=== PATIENT | male | born 1955 | race Caucasian/White ===

== ENCOUNTER 2018-10-17 06:49 | Day surgery (SDC) | payer MEDICARE, OTHER, SELFPAY ==
[2018-09-22 09:27] VITALS: BMI 45.4
--- NOTE | 2018-10-16 | COLBX_PTH ---
PATIENT: JAMAAL ALANIZ LOC: [facility] U#:[id number] AGE/SX: 63/M ROOM: RE10/17/[address]: Dr. Alfa Lau MD : [id number] BED: DIS: 10/17/2018 SPEC #: [id number] RECD: 10/17/18 09:37 STATUS: WAYNE AGUILA #: [id number] CURLY: 10/16/18 00:[address]: Alfa Lau DEPT: SURGICAL PATHOLOGY RECD BY: Amador Peters ENTERED: 10/17/18 09:37 SP TYPE: COLON BX OTHR DR: Dr. Brian Díaz MD Tissues: Sigmoid colon biopsy Procedures: Surgery Specimen Level IV HEADER OPERATION: Colonoscopy (MAC) PRE-OP DIAGNOSIS: History of polyps TISSUE SUBMITTED: Biopsy of sigmoid colon polyp MICROSCOPIC DIAGNOSIS Sigmoid colon polyp, biopsy: Diminutive hyperplastic polyp, chronically inflamed. CE:jennifer 10/20/18 MICROSCOPIC DESCRIPTION Slides are reviewed. GROSS DESCRIPTION Received in fixative is one container labeled with the patient's name and designated biopsy of sigmoid colon polyp. The specimen consists of one irregular fragment of light stahl soft tissue that measures 0.5 x 0.2 x 0.1 cm. The specimen is totally submitted in one cassette. / SJ:rg 10/17/18 TC:3 CPT: 07663
[2018-10-17] VITALS (7 sets, daily range): BP systolic 110–124; BP diastolic 63–93; PULSE 59–66; RESP 16–18; TEMP 36.2–37.3; O2SAT 95–98; BMI 46.2
[2018-10-17 07:40] LABS: Bedside Glucose 152 mg/dL (70-110)
--- NOTE | 2018-10-17 08:36 | PCM.HP.BLA ---
Problem List (1) Personal history of colonic polyps Status: Acute History and Physical Date of Admission: 10/17/18 Intake Vital Signs 09/22/18 Height 5 ft 9 in 09/22/18 Weight: 308 lb 09/22/18 Body Mass Index (BMI) 45.4 09/22/18 Blood Pressure 131/81 H 09/22/18 Respiratory Rate 18 Intake Visit Reasons: Colonoscopy Consult Civil Defense Director Required: No Is patient in pain?: No Allergies No Known Allergies Allergy (Unverified 09/22/18 09:28) Medications aspirin 81 mg tablet,delayed release 81 mg PO DAILY 09/22/18 [History Confirmed 09/22/18] atorvastatin 20 mg tablet 20 mg PO DAILY 09/22/18 [History Confirmed 09/22/18] hydrochlorothiazide 25 mg tablet 25 mg PO DAILY 09/22/18 [History Confirmed 09/22/18] insulin NPH human semi-synthetic 100 unit/mL subcutaneous suspension unit SC 09/22/18 [History Confirmed 09/22/18] lisinopril 20 mg tablet 20 mg PO DAILY 09/22/18 [History Confirmed 09/22/18] metformin 1,000 mg tablet 1,000 mg PO BID 09/22/18 [History Confirmed 09/22/18] metoprolol succinate ER 100 mg tablet,extended release 24 hr 100 mg PO BID 09/22/18 [History Confirmed 09/22/18] PFS Medical History Diabetes (Acute) High cholesterol (Acute) HTN (hypertension) (Chronic) Surgical History H/O heart artery stent (Acute) S/P appendectomy (Acute) S/P arthroscopic knee surgery (Acute) Status post replacement of right shoulder joint (Acute) Social History Smoking Status: Former smoker alcohol intake: never HPI HPI HPI: JAMAAL ALANIZ, is a 63 M who presents to the office today for HPI HPI HPI: JAMAAL ALANIZ, is a 63 M who presents to the office today for colonoscopy consult. Patient reports his last colonoscopy was 5 years ago and he was recommended to have a repeat colonoscopy in 5 years due to polyps removed. Patient reports that he has intermittent diarrhea and this is been going on for years. He says that he will go a few days then he will have a few days of diarrhea and then go back to normal for a few days. He does not report any blood in his stool or abdominal pain. He does not have any family history of colon cancer. He does have significant shortness of breath and he says he cannot climb a flight of stairs. He says he quit smoking in 2013 the same year he had a heart attack and heart stents. ROS General General: Yes weight change; no fatigue Endo Endocrine: Yes diabetes mellitus Musc Musculoskeletal: Yes back problems and arthritis Cardio Cardiovascular: Yes heart disease, high blood pressure, heart attack and heart stent (2013); no murmur, pacemaker, atrial fibrillation, palpitations, shortness of breat with exertion or chest pain Psych Psychiatric: No depression or anxiety Resp Respiratory: Yes shortness of breath, No sleep apnea, No cough, No COPD, No asthma, No emphysema, No wheezing Gastro Gastrointestinal: No abdominal pain, No nausea or vomiting, Yes diarrhea, No constipation, No blood in stool, No acid reflux, Yes hemorrhoids, No ulcers, No gallbladder problem, No black,tarry stools Hamzah Hematologic: Yes blood thinners Exam Const General: cooperative Orientation: alert, oriented x3 Resp Effort & Inspection: audible wheezes, labored Cardio Rate: regular rate Rhythm: regular rhythm Heart Sounds: no murmurs GI Inspection: non-distended Palpation: soft, nontender Assessment & Plan Problems 1. Personal history of colonic polyps Z86.010 2. Shortness of breath R06.02 Plan The patient is due for colonoscopy due to personal history of polyps. I explained endoscopy in detail to the patient. I explained the risks including but not limited to stroke or heart attack with anesthesia, perforation of the GI tract, bleeding, infection. I explained that any of these could necessitate further emergency surgery. The patient understands and all questions were answered sufficiently. The patient wishes to proceed with procedure. The patient is also very short of breath in the office and says he is not able to climb a flight of stairs. He reports that he quit smoking in 2013 but smoked for 50 years. I will refer him to pulmonology as he may need optimization and he may have COPD. Alfa Lau MD Pager: [facility] [address] [place] [address], [address] [place] [address] Office: I have re-examined the patient. There are no clinical changes since date of exam Alfa Lau MD Pager: [facility] [address] [place] [address], [address] [place] [address] Office:
--- NOTE | 2018-10-17 09:16 | OP.ENDO_ITS ---
10/17/2018 Brian Díaz Re : Colonoscopy procedure for Alfonzo Díaz This procedure was performed on Wednesday, October 17, 2018. My impressions and recommendations are as follows: Impressions : - One small polyp in the sigmoid colon, removed with a cold biopsy forceps. Resected and retrieved. - The entire examined colon is normal on direct and retroflexion views. Recommendations : - Discharge patient to home. - Resume previous diet. - Continue present medications. - Await pathology results. - Repeat colonoscopy date to be determined after pending pathology results are reviewed for surveillance based on pathology results. My findings are described in the full procedure note, which is enclosed. If I can be of further assistance, please feel free to contact me at Doctor phone number(s): , Work: . Sincerely, Alfa Lau MD 10/17/2018 9:15:41 AM This report has been signed electronically.
== END 2018-10-17 09:57 | disposition home or self-care (01) ==
LOC: EN 06:53 → AC 06:55
PROVIDERS: Family Provider Family Medicine; PCP Family Medicine; Referring Provider Family Medicine; Visit Provider Surgery
PROC: 0DJD8ZZ Inspection of Lower Intestinal Tract, Via Natural or Artificial Opening Endoscopic (ICD-10-PCS; CPT 45378; principal; 2018-10-17 08:25)
DX: Z12.11 Encounter for screening for malignant neoplasm of colon (principal); K63.5 Polyp of colon; E11.9 Type 2 diabetes mellitus without complications; I10 Essential (primary) hypertension; E78.00 Pure hypercholesterolemia, unspecified; Z79.82 Long term (current) use of aspirin; Z79.4 Long term (current) use of insulin; Z79.899 Other long term (current) drug therapy; I25.2 Old myocardial infarction; Z86.010 Personal history of colon polyps; Z87.891 Personal history of nicotine dependence; Z95.5 Presence of coronary angioplasty implant and graft
CPT/HCPCS: 45380; 82962; 88305; J7120

== ENCOUNTER → 2019-01-05 10:35 | Outpatient (CLI) | payer MEDICARE, SELFPAY ==
[2018-12-09 08:49] VITALS: BMI 45.7
[2019-01-05 11:10] VITALS: PULSE 62; PULSE 70; PULSE 77; PULSE 89; PULSE 91; PULSE 92; PULSE 93; O2SAT 93; O2SAT 95; O2SAT 96
--- NOTE | 2019-01-05 13:35 | PCM.PSN.6M ---
PSN 6 Minute Walk Test - 6 Minute Walk Test 6 Minute Walk Test: 6 Minute Walk Test PSN:6-Minute Walk Test Start: 01/05/19 11:10 Freq: Status: Active Protocol: [id number] Document 01/05/19 11:10 JOSEDANI (Rec: 01/05/19 11:12 MIESHA [id number]) 6 Minute Walk Test Date Performed 01/05/19 Time Performed 11:00 Height 5 ft 8 in Weight: 136.985 kg Weight in Pounds 302.[address]: Ulisses Díaz Assistive device used: None Pre-test Oxygen Delivery Method Room Air Pulse Ox (%) 96 Pulse Rate (60-100 beats/min) 62 Dyspnea Jaqueline Scale (0-10) 0 Exertion Jaqueline Scale (6-20) 6 1st minute Oxygen Delivery Method Room Air Pulse Ox (%) 95 Pulse Rate (60-100 beats/min) 77 2nd minute Oxygen Delivery Method Room Air Pulse Ox (%) 93 Pulse Rate (60-100 beats/min) 89 3rd minute Oxygen Delivery Method Room Air Pulse Ox (%) 93 Pulse Rate (60-100 beats/min) 91 4th minute Oxygen Delivery Method Room Air Pulse Ox (%) 93 Pulse Rate (60-100 beats/min) 92 5th minute Oxygen Delivery Method Room Air Pulse Ox (%) 93 Pulse Rate (60-100 beats/min) 93 6th minute Oxygen Delivery Method Room Air Pulse Ox (%) 93 Pulse Rate (60-100 beats/min) 93 Dyspnea Jaqueline Scale (0-10) 2 Exertion Jaqueline Scale (6-20) 13 Post-test Oxygen Delivery Method Room Air Pulse Ox (%) 96 Pulse Rate (60-100 beats/min) 70 Full Laps Walked 16 Partial Lap, Number of Tiles Walked 10 Total Distance Walked (ft) 954 - Interpretation Interpretation: The patient was able to ambulate 954 feet over the course of 6 minutes on room air with no assistive devices or breaks. The patient did experience significant desaturation from a baseline of 96% to as low as 93% and some reflexive tachycardia and 93 bpm. These findings are consistent with deconditioning. - Recommendations Recommendations: No supplemental oxygen is indicated at this time.
== END ==
PROVIDERS: Family Provider Family Medicine; PCP Family Medicine; Referring Provider Internal Medicine Critical Care Medicine; Visit Provider Internal Medicine Critical Care Medicine
DX: R06.02 Shortness of breath (principal)
CPT/HCPCS: 94618

== ENCOUNTER → 2019-01-08 08:37 | Outpatient (CLI) | payer MEDICARE, SELFPAY ==
[2018-12-09 08:49] VITALS: BMI 45.7
--- NOTE | 2019-01-08 14:55 | PFTCOMP_ITS ---
COMPLETE PULMONARY FUNCTION TEST INTERPRETATION Brief HPI: Patient is a 63 year old male, currently under the care of Dr. Díaz, who presents to [facility] for complete pulmonary function tests secondary to diagnosis of dyspnea. Respiratory therapist reports good effort and reproducible results. Interpretation: Forced expiration spirometry shows a moderately severe large airways obstructive ventilatory defect with an FEV1 of 50% predicted. There is a significant bronchodilator response in FEV1 by strict ATS criteria. Spirograms are of good quality and plateau slowly, indicating slowly emptying areas of the lungs. The respiratory flow volume loop shows decreased expiratory flow rates at all lung volumes consistent with airway obstruction. Lung volumes by body plethysmography show an elevated total lung capacity at 9.19 L, 150% predicted. FRC and RV are elevated out of proportion. Lung volume measurements are consistent with hyperinflation and air-trapping. Diffusion capacity by carbon monoxide is decreased at 58% predicted. The airway resistance is elevated. No previous pulmonary function tests were available for review. Impression: Partially reversible moderately severe large airways obstructive ventilatory defect with a symmetric reduction diffusing capacity, resulting in air trapping with hyperinflation, in a pattern consistent with COPD/asthma overlap syndrome
== END ==
PROVIDERS: Family Provider Family Medicine; PCP Family Medicine; Referring Provider Internal Medicine Critical Care Medicine; Visit Provider Internal Medicine Critical Care Medicine
DX: R06.02 Shortness of breath (principal)
CPT/HCPCS: 94060; 94726; 94729

== ENCOUNTER → 2021-03-17 18:29 | Outpatient (CLI) | payer MEDICARE, OTHER, SELFPAY ==
--- NOTE | 2021-03-17 18:40 | CT_ITS ---
STUDY: LOW DOSE CT LUNG CANCER SCREENING REASON FOR EXAM: Male, 65 years old. NICOTINE DEPENDENCE ex smoker x 8 years. smoked for 45 2ppd. copd and htn RADIATION DOSAGE (If Supplied By Facility): CTDIvol = ( 4.02 ) mGy, DLP = ( 129.89 ) mGycm TECHNIQUE: No contrast was administered. Low dose technique was utilized (average mAS-38 and kVp 120). 1.25 mm axial source images with a slice interval of 1.25-mm were reconstructed in lung windows. 2.5 mm axial source images with a slice interval of 2.5-mm were reconstructed in lung windows. 5.0 mm axial source images with a slice interval of 5.0-mm were reconstructed in soft tissue windows. Nodule measured using lung windows on PACS and/or independent workstation with automated measurement of minimum and maximum diameter. Nodule measurement reported as average diameter rounded to the nearest whole number. Growth is defined as an increase ins size of greater than 1.5 mm. COMPARISON: None. Findings: There are no high-risk focal findings. There are scattered granulomata all measuring less than 5 mm, low risk. Central airways are patent. Pleural surfaces are intact. Coronary arteries are severely diseased. Cardiac chambers are normal in size and shape. Osseous structures are intact with right shoulder replacement. CT/Low Dose CT Lung Screening IMPRESSION: 1. Lung RADS category 2. 2. Benign granulomata. 3. Severe coronary artery disease. IMPORTANT NOTES FOR USE: ACR Lung-RADS Version 1.1 Assessment Categories Release Date: 2018 Category: Coded 0-4 bases on nodule(s) with highest degree of suspicion. Negative screen is defined as categories 1 and 2; a positive screen is defined as categories 3 and 4. Category 3 and 4A nodules that are unchanged on interval CT should be coded as category 2, and individuals returned to screening in 12 months. Category 4X: Category 3 or 4 nodules with additional imaging findings that increase the suspicion of lung cancer, such as spiculation, GGN that doubles in size in 1 year, enlarged lymph notes, etc. Category Modifiers: S (significant finding unrelated to lung cancer) Electronically Signed: Betzaida Gomez MD at 19:42 EDT Tel , Service support ,
== END ==
PROVIDERS: PCP Family Medicine; Visit Provider Nurse Practitioner Acute Care
DX: Z87.891 Personal history of nicotine dependence (principal)
CPT/HCPCS: 71271

== ENCOUNTER 2023-05-13 09:52 | Outpatient (RCR) | payer MEDICARE, SELFPAY | END 2023-05-16 23:59 | LOC: NS 09:52 | PROVIDERS: PCP Family Medicine; Referring Provider Orthopaedic Surgery; Visit Provider Orthopaedic Surgery | DX: Z71.3 Dietary counseling and surveillance (principal); E11.9 Type 2 diabetes mellitus without complications; E66.9 Obesity, unspecified; Z68.42 Body mass index [BMI] 45.0-49.9, adult | CPT/HCPCS: 97802 ==

== ENCOUNTER 2023-06-05 10:30 | Outpatient (RCR) | payer MEDICARE, SELFPAY | END 2023-06-16 23:59 | LOC: NS 10:30 | PROVIDERS: PCP Family Medicine; Referring Provider Orthopaedic Surgery; Visit Provider Orthopaedic Surgery | DX: Z71.3 Dietary counseling and surveillance (principal); E11.9 Type 2 diabetes mellitus without complications; E66.9 Obesity, unspecified; Z68.42 Body mass index [BMI] 45.0-49.9, adult | CPT/HCPCS: 97803 ==

== ENCOUNTER 2023-07-09 10:54 | Outpatient (RCR) | payer MEDICARE, SELFPAY | END 2023-07-17 23:59 | LOC: NS 10:54 | PROVIDERS: PCP Family Medicine; Referring Provider Orthopaedic Surgery; Visit Provider Orthopaedic Surgery | DX: Z71.3 Dietary counseling and surveillance (principal); E11.9 Type 2 diabetes mellitus without complications; E66.9 Obesity, unspecified; Z68.42 Body mass index [BMI] 45.0-49.9, adult | CPT/HCPCS: 97803 ==

== ENCOUNTER → 2023-08-09 | Outpatient (CLI) | payer MEDICARE, SELFPAY ==
--- NOTE | 2023-08-09 07:53 | CT_ITS ---
STUDY: LOW DOSE CT LUNG CANCER SCREENING REASON FOR EXAM: Male, 68 years old. Quit smoking 2009. The patient smoked 1-3 packs per day for 50 years. RADIATION DOSAGE (If Supplied By Facility): CTDIvol = ( 4.02 ) mGy, DLP = ( 138.43 ) mGycm TECHNIQUE: No contrast was administered. Low dose technique was utilized (average mAS-38 and kVp 120). 1.25 mm axial source images with a slice interval of 1.25-mm were reconstructed in lung windows. 2.5 mm axial source images with a slice interval of 2.5-mm were reconstructed in lung windows. 5.0 mm axial source images with a slice interval of 5.0-mm were reconstructed in soft tissue windows. COMPARISON: Comparison is made with prior examination of March 17, 2021. NODULES: Stable scattered bilateral ossified granulomas. Endobronchial lesion: None Aorta: Mild atherosclerotic plaque formation of the aortic arch. CORONARY ARTERIES: Coronary artery calcification is seen. Heart: Unremarkable Pulmonary artery: Unremarkable Mediastinal nodes: Unremarkable Other chest and abdominal findings: Patient is status post right shoulder replacement. CT/Low Dose CT Lung Screening IMPRESSION: Lung-RADS category 2 - Continue annual screening with LDCT in 12 months. IMPORTANT NOTES FOR USE: ACR Lung-RADS Version 1.1 Assessment Categories Release Date: 2018 Category: Coded 0-4 bases on nodule(s) with highest degree of suspicion. Negative screen is defined as categories 1 and 2; a positive screen is defined as categories 3 and 4. Category 3 and 4A nodules that are unchanged on interval CT should be coded as category 2, and individuals returned to screening in 12 months. Category 4X: Category 3 or 4 nodules with additional imaging findings that increase the suspicion of lung cancer, such as spiculation, GGN that doubles in size in 1 year, enlarged lymph notes, etc. Category Modifiers: S (significant finding unrelated to lung cancer) Electronically Signed: Suhas Puente MD at 12:37 EST ,
--- OUTSIDE RECORDS SUMMARY | 2023-08-09 08:09 | XMS RPT_ITS | CCD ---
Author Name Unknown Address [address] [place] [address] Organization [facility] Care Team Providers Care Emt B Name Role Phone Arjun GUDINO, Janelle Cadena Unavailable Arjun GUDINO, Janelle Cadena Unavailable [facility] [place] Unavailable [facility] Unavailable [phone] Rangel GUDINO, Dr. Pozo Unavailable Nick GUDINO, Dr. William Emerson Unavailable Judi GUDINO, Dr. Grimm Unavailable Niels MICHAEL, Akanksha Unavailable Dr. Ulisses Díaz DO Unavailable [facility] Unavailable Sekou GUDINO, Dr. Cohn ([place] [facility]) A Unavail able [facility] DudleyClaudia Dyer Unavaila ble Julio PAYNE, Dr. Koch Unavailable Orthopedic Provider Unavailable Unavailable [facility], . [facility] Unavailable Abraham GUDINO, George Bynum Unavailable Nancie GUDINO, Dr. Luther Unavailable [phone] Mary Alice GUDINO, Teresita Ramírez Unavailable Jossy FULTON, Aixa Unavailable Roland FULTON, Carlita Ramírez Unavailable Unavailable Felicitas Saenz PA-C Unavailable [phone] Vick HAY, Luke E Unavailable Vick, Tiffanie C Unavailable Unavailable Terrance DECK CADET, Magdalena Unavailable Unavailable King CHETNA-C, Giovanni Stone Unavailable [phone] Claribel RN, Felicitas Liu Unavailable Unavaila nikos Sapp RN, Abena Unavailable Pteers DECK CADET, Hortencia Unavailable Unavailable Darius PA-C, Berna J Unavailable [phone] Richert DECK CADET, Michelle L Unavailable Unavailab le Madhav DECK CADET, Teresita M Unavailable Unavailab le Yesica DECK CADET, Shannon Salvador Unavailable Unavailab le Zachary MA, Magdalena Unavailable Unavailable Vikas GUDINO, Devante Liu Unavailable [phone] Vess DECK CADET, Neenoche L Unavailable Unavailable Wenickieraixa DECK CADET, Marsha Unavailable Unavailabl e Sabino DECK CADET, Blanka N Unavailable Unavaila ble Zaugg DECK CADET, Hollie Unavailable Unavailable Unavailable Unavailable CURRAN, ZAFAR CORPORATE SECRETARY Admitting Unavailable CURRAN, ZAFAR CORPORATE SECRETARY Primary Care Unavailable BROWN, JANELLE Consulting Unavailable CURRAN, ZAFAR CORPORATE SECRETARY Attending Unavailable PROVIDER, UNKNOWN Consulting Unavailable PROVIDER, UNKNOWN Consulting Unavailable PROVIDER, UNKNOWN Consulting Unavailable CURRAN, ZAFAR CORPORATE SECRETARY Attending Unavailable CURRAN, ZAFAR CORPORATE SECRETARY Admitting Unavailable CURRAN, ZAFAR CORPORATE SECRETARY Primary Care Unavailable BROWN, JANELLE Consulting Unavailable PROVIDER, UNKNOWN Consulting Unavailable PROVIDER, UNKNOWN Consulting Unavailable PROVIDER, UNKNOWN Consulting Unavailable CURRAN, ZAFAR CORPORATE SECRETARY Admitting Unavailable CURRAN, ZAFAR CORPORATE SECRETARY Primary Care Unavailable CURRAN, ZAFAR CORPORATE SECRETARY Attending Unavailable BROWN, JANELLE Consulting Unavailable PROVIDER, UNKNOWN Consulting Unavailable PROVIDER, UNKNOWN Consulting Unavailable PROVIDER, UNKNOWN Consulting Unavailable CURRAN, ZAFAR CORPORATE SECRETARY Primary Care Unavailable CURRAN, ZAFAR CORPORATE SECRETARY Attending Unavailable CURRAN, ZAFAR CORPORATE SECRETARY Admitting Unavailable BROWN, JANELLE Consulting Unavailable PROVIDER, UNKNOWN Consulting Unavailable PROVIDER, UNKNOWN Consulting Unavailable PROVIDER, UNKNOWN Consulting Unavailable KHANH GHOSH DO Attending Unavailable KHANH GHOSH DO Admitting Unavailable JANELLE DÍAZ Referring Unavailable BROWN, JANELLE Consulting Unavailable KHANH GHOSH DO Primary Care Unavailable PROVIDER, UNKNOWN Consulting Unavailable PROVIDER, UNKNOWN Consulting Unavailable PROVIDER, UNKNOWN Consulting Unavailable ARJUN, JANELLE Referring Unavailable BROWN, JANELLE Consulting Unavailable MILADY, ROSANNA E Primary Care Unavailable MILADY ROSANNA E Admitting Unavailable MILADYROSANNA E Attending Unavailable PROVIDER, UNKNOWN Consulting Unavailable PROVIDER, UNKNOWN Consulting Unavailable PROVIDER, UNKNOWN Consulting Unavailable FAUSTINO CHARLES Primary Care Unavailable JANELLE DÍAZ Referring Unavailable FAUSTINO CHARLES Attending Unavailable FAUSTINO CHARLES Admitting Unavailable JANELLE DÍAZ Consulting Unavailable PROVIDER, UNKNOWN Consulting Unavailable PROVIDER, UNKNOWN Consulting Unavailable PROVIDER, UNKNOWN Consulting Unavailable FAUSTINO CHARLES Primary Care Unavailable FAUSTINO CHARLES Admitting Unavailable FAUSTINO CHARLES Attending Unavailable JANELLE DÍAZ Referring Unavailable ARJUN, JANELLE Consulting Unavailable PROVIDER, UNKNOWN Consulting Unavailable PROVIDER, UNKNOWN Consulting Unavailable PROVIDER, UNKNOWN Consulting Unavailable GUERDA FONTENOT MD Attending UnavailGUERDA Oliveira MD Admitting UnavailJANELLE Christopher Consulting Unavailable GUERDA FONTENOT MD Primary Care Unavailabl e PROVIDER, UNKNOWN Consulting Unavailable PROVIDER, UNKNOWN Consulting Unavailable PROVIDER, UNKNOWN Consulting Unavailable Allergies Allergy Classification Reported Allergen(s) Allergy Type Date of Onset Reaction(s) Facility (1 source) Penicillin Drug Allergy [facility] Repository Medications Current Medications Medication Drug Class(es) Dates Sig (Normalized) Sig (Original) Advocate Syringes (7 sources) Start: 09-13-2021 atorvastatin 20 mg oral tablet (7 sources) HMG-CoA Reductase Inhibitor Start: 06-11-2023 empagliflozin 10 mg oral tablet (7 sources) Sodium-Glucose Cotransporter 2 Inhibitor hydroCHLOROthiazide 25 mg oral tablet (7 sources) Thiazide Diuretic Start: 06-11-2023 insulin isophane, human 100 unt/ml injectable suspension (14 sources) Start: 09-13-2021 insulin, regular, human 100 unt/ml injectable solution (7 sources) Insulin 24 hr isosorbide mononitrate 30 mg extended release oral tablet (7 sources) Nitrate Vasodilator lisinopril 40 mg oral tablet (7 sources) Angiotensin Converting Enzyme Inhibitor Start: 06-11-2023 metFORMIN hydrochloride 1000 mg oral tablet (7 sources) Biguanide Start: 06-11-2023 ondansetron 4 mg oral tablet (14 sources) Serotonin-3 Receptor Antagonist Start: 05-20-2023 Completed/Discontinued Medications Medication Drug Class(es) Dates Sig (Normalized) Sig (Original) acetaminophen 325 mg / HYDROcodone bitartrate 5 mg oral tablet (14 sources) Opioid Agonist Start: 11-25-2013 End: 08-30-2014 albuterol 0.83 mg/ml inhalation solution (14 sources) beta2-Adrenergic Agonist Start: 07-05-2016 End: 10-05-2016 Problems Problem Classification Problem Date Documented Da te Episodic/Chronic Abdominal pain (14 sources) Epigastric pain; Translations: [Epigastric pain] 08-30-2014 Episodic Acute bronchitis (20 sources) Acute bronchitis; Translations: [Acute bronchitis, unspecified] 04-02-2017 Episodic Adjustment disorders (20 sources) Grief finding; Translations: [Adjustment disorder with depressed mood] 03-01-2021 Chronic Allergic reactions (14 sources) Eczema; Translations: [Dermatitis, unspecified] 03-01-2021 Episodic Asthma (20 sources) Asthma-chronic obstructive pulmonary disease overlap syndrome; Translations: [Chronic obstructive asthma, unspecified] 05-20-2023 Chronic Calculus of urinary tract (14 sources) Renal colic; Translations: [Unspecified renal colic] 05-20-2023 Episodic Chronic obstructive pulmonary disease and bronchiectasis (20 sources) Bronchitis; Translations: [Bronchitis, not specified as acute or chronic] 04-29-2023 Episodic Coronary atherosclerosis and other heart disease (20 sources) Coronary arteriosclerosis; Translations: [Atherosclerotic heart disease of [place] coronary artery without angina pectoris] 05-20-2023 Chronic Diabetes mellitus with complications (20 sources) Hyperglycemia due to type 2 diabetes mellitus; Translations: [Type 2 diabetes mellitus with hyperglycemia] 05-20-2023 Chronic Diabetes mellitus without complication (20 sources) Diabetes mellitus without mention of complication, type II or unspecified type, not stated as uncontrolled; Translations: [Diabetes mellitus] 08-30-2014 Chronic Diabetes mellitus without complication (14 sources) Glycosuria; Translations: [Glycosuria] 05-20-2023 Episodic Disorders of lipid metabolism (20 sources) Hyperlipidemia; Translations: [Hyperlipidemia, unspecified] 05-20-2023 Chronic Essential hypertension (20 sources) Benign essential hypertension; Translations: [Essential (primary) hypertension] 05-20-2023 Chronic Fluid and electrolyte disorders (14 sources) Hypokalemia; Translations: [Hypokalemia] 05-20-2023 Episodic Gastritis and duodenitis (7 sources) Gastritis; Translations: [Gastritis, unspecified, without bleeding] 12-09-2019 Episodic Gastrointestinal hemorrhage (14 sources) Gastrointestinal hemorrhage; Translations: [Hemorrhage of anus and rectum] 10-29-2018 Episodic Genitourinary symptoms and ill-defined conditions (20 sources) Dysuria; Translations: [Dysuria] 05-16-2023 Episodic Immunizations and screening for infectious disease (20 sources) Needs influenza immunization; Translations: [Encounter for immunization] 04-29-2019 Episodic Mycoses (7 sources) Candidiasis of skin; Translations: [Candidiasis of skin and nail] 07-13-2014 Episodic Nausea and vomiting (20 sources) Nausea; Translations: [Nausea] 05-20-2023 Episodic Noninfectious gastroenteritis (20 sources) Gastroenteritis; Translations: [Noninfective gastroenteritis and colitis, unspecified] 08-30-2014 Episodic Osteoarthritis (20 sources) Osteoarthritis of knee; Translations: [Osteoarthritis of knee, unspecified] 05-20-2023 Chronic Other aftercare (20 sources) Long-term (current) use of other medications 08-30-2014 Episodic Other aftercare (20 sources) Long-term current use of insulin; Translations: [assisted (current) use of insulin] 05-20-2023 Episodic Other and unspecified benign neoplasm (20 sources) Polyp of colon; Translations: [Polyp of colon] 05-20-2023 Episodic Other connective tissue disease (14 sources) Triggering of digit; Translations: [Trigger finger, unspecified finger] 05-20-2023 Episodic Other connective tissue disease (7 sources) Other tenosynovitis of hand and wrist 04-28-2012 Episodic Other injuries and conditions due to external causes (20 sources) Injury of rotator cuff; Translations: [Unspecified injury of muscle(s) and tendon(s) of the rotator cuff of unspecified shoulder, initial encounter] 10-29-2018 Episodic Other lower respiratory disease (14 sources) Dyspnea; Translations: [Shortness of breath] 08-30-2014 Episodic Other lower respiratory disease (7 sources) Dyspnea on exertion; Translations: [Other forms of dyspnea] 10-29-2018 Episodic Other male genital disorders (20 sources) Male erectile dysfunction, unspecified; Translations: [Impotence of organic origin] 05-20-2023 Chronic Other nervous system disorders (14 sources) Carpal tunnel syndrome; Translations: [Carpal tunnel syndrome, unspecified upper limb] 05-20-2023 Chronic Other non-traumatic joint disorders (20 sources) Ankle pain; Translations: [Pain in unspecified ankle and joints of unspecified foot] 08-30-2014 Episodic Other non-traumatic joint disorders (20 sources) Pain in unspecified knee; Translations: [Pain in joint, lower leg] 08-30-2014 Episodic Other nutritional; endocrine; and metabolic disorders (20 sources) Body mass index 40+ - severely obese; Translations: [Body mass index (BMI) 45.0-49.9, adult] 10-01-2018 Chronic Other screening for suspected conditions (not mental disorders or infectious disease) (14 sources) Screening status; Translations: [Encounter for screening for other disorder] 08-30-2014 Episodic Other skin disorders (14 sources) Ingrowing nail; Translations: [Ingrowing nail] 08-30-2014 Episodic Other upper respiratory infections (20 sources) Acute sinusitis; Translations: [Acute sinusitis, unspecified] 05-18-2017 Episodic Residual codes; unclassified (20 sources) Viral syndrome; Translations: [Other general symptoms and signs] 05-20-2023 Episodic Residual codes; unclassified (20 sources) Influenza vaccination declined; Translations: [Immunization not carried out because of patient refusal] 10-01-2018 Episodic Spondylosis; intervertebral disc disorders; other back problems (7 sources) Low back pain; Translations: [Lumbago] 02-08-2016 Episodic Results Test Name Value Interpretation Reference Range Facil ity Vital Signs Date Time Vital Sign Value Performing Clinician Facility 05-20-2023 11:37-0500 Body height 172.72 cm Shannon Robert DECK CADET [facility] [employer] [facility] [employer], [employer]. 05-20-2023 11:37-0500 Body mass index (BMI) [Ratio] 49.57 kg/m2 Shannon Robert DECK CADET [facility] [employer] [facility] [employer], [employer]. 05-20-2023 11:37-0500 Body surface area Derived from formula 2.52 m2 Pat Yesica DECK CADET [employer] [facility] [employer], [employer]. 05-20-2023 11:37-0500 Body temperature 97 [degF] Shannon Robert DECK CADET [employer] [facility] [employer], [employer]. 05-20-2023 11:37-0500 Body weight 147.87 kg Shannon Robert DECK CADET [employer] [facility], [facility].; [employer] 05-20-2023 11:37-0500 Diastolic blood pressure 84 mm[Hg] Shannon Robert DECK CADET [facility] [employer], [facility]. 05-20-2023 11:37-0500 Heart rate 76 /min Pat Stuckey DECK CADET [facility] [employer], [employer] 05-20-2023 11:37-0500 Systolic blood pressure 153 mm[Hg] Shannon Boggs idania [facility], [facility] [employer] [employer] 05-16-2023 10:10-0500 Body height 172.72 cm Magdalena Carlos DECK CADET [facility] [employer], [facility]. 05-16-2023 10:10-0500 Body temperature 96.7 [degF] Magdalena Carlos LPN [facility], [facility] [employer], [employer] 05-16-2023 10:10-0500 Diastolic blood pressure 88 mm[Hg] Magdalena Carlos LPN [facility] [employer], [employer] 05-16-2023 10:10-0500 Heart rate 83 /min Magdalena Carlos DECK CADET [facility], [facility].; [employer], [facility]. 05-16-2023 10:10-0500 Inhaled oxygen concentration 20 % Magdalena Carlos LPN [facility] [employer], [employer] 05-16-2023 10:10-0500 SaO2% (BldA) [Mass fraction] 94 % Magdalena Carlos DECK CADET [facility] [employer] 05-16-2023 10:10-0500 Systolic blood pressure 172 mm[Hg] Magdalena Carlos LPN [facility], [facility].; [employer], [facility]. 04-29-2023 10:59-0500 Body height 172.72 cm Pat Yesica DECK CADET [facility], [facility].; [employer] [employer] 04-29-2023 10:59-0500 Body mass index (BMI) [Ratio] 49.72 kg/m2 [facility], [facility].; [facility], [facility]. 04-29-2023 10:59-0500 Body surface area Derived from formula 2.[address] [facility], [facility].; [facility], [facility]. 04-29-2023 10:59-0500 Body temperature 97.8 [degF] PatMadeleine Robert [facility], [facility].; [facility] [employer] [facility], [facility]. 04-29-2023 10:59-0500 Body weight 148.[address] [facility], [facility].; [facility] [employer] [facility], [facility]. 04-29-2023 10:59-0500 Diastolic blood pressure 67 mm[Hg] Shannon Robert [facility], [facility].; [facility] [employer] [facility], [facility]. 04-29-2023 10:59-0500 Heart rate 65 /min [facility] Yesica [facility], [facility].; [facility], [facility]. 04-29-2023 10:59-0500 Inhaled oxygen concentration 20 % PatMadeleine Robert [facility], [facility].; [facility], [facility]. 04-29-2023 10:59-0500 SaO2% (BldA) [Mass fraction] 95 % PatMadeleine Robert [facility], [facility].; [facility] [employer] [facility], [facility]. 04-29-2023 10:59-0500 Systolic blood pressure 111 mm[Hg] Shannon Benson [facility], [facility].; [facility] [employer] [facility], [facility]. 02-11-2023 09:50-0400 Body height 172.[address] [facility], [facility].; [facility] [employer] [facility], [facility]. 02-11-2023 09:50-0400 Body mass index (BMI) [Ratio] 50.02 kg/m2 [facility] Yesica [facility], [facility].; [employer], [employer]. 02-11-2023 09:50-0400 Body surface area Derived from formula 2.[address] [facility], [facility].; [facility] [employer]. 02-11-2023 09:50-0400 Body weight 149.23 kg Shannon Robert LPN [facility] [employer] [employer] 02-11-2023 09:50-0400 Diastolic blood pressure 84 mm[Hg] Shannon Robert DECK CADET [facility] [employer], [employer] 02-11-2023 09:50-0400 Heart rate 69 /min Shannon Robert [facility], [facility] [employer] [employer] 02-11-2023 09:50-0400 Systolic blood pressure 128 mm[Hg] Shannon Benson [facility] [employer] [facility] [employer] 11-13-2022 11:14-0400 Body height 172.[address] [facility], [facility] [employer] [employer] 11-13-2022 11:14-0400 Body mass index (BMI) [Ratio] 49.87 kg/m2 Shannon Robert [facility], [facility] [employer] [employer] 11-13-2022 11:14-0400 Body surface area Derived from formula 2.52 m2 Pat Stuckey [facility] [employer] [facility] [employer] 11-13-2022 11:14-0400 Body temperature 97.7 [degF] Shannon Robert DECK [employer]ET [facility] [employer] [facility] [employer] 11-13-2022 11:14-0400 Body weight 148.78 kg Shannon Robert DECK CADET [facility] [employer] [facility] [employer] 11-13-2022 11:14-0400 Diastolic blood pressure 72 mm[Hg] Shannon Robert [facility] [employer] [facility] [employer] 11-13-2022 11:14-0400 Heart rate 72 /min Shannon Robert [facility] [employer] [facility] [employer] 11-13-2022 11:14-0400 Systolic blood pressure 153 mm[Hg] Shannon Benson [facility] [employer] [facility] [employer] 10-15-2022 11:07-0400 Body height 172.[address] [facility], [facility] [employer] [facility] 10-15-2022 11:07-0400 Body mass index (BMI) [Ratio] 49.87 kg/m2 Shannon Robert [facility], [facility] [employer] [facility] 10-15-2022 11:07-0400 Body surface area Derived from formula 2.[address] [facility], [facility] [employer] [facility], [facility]. 10-15-2022 11:07-0400 Body weight 148.[address] [facility], [facility] [employer] [facility] 10-15-2022 11:07-0400 Diastolic blood pressure 70 mm[Hg] Shannon Robert [facility], [facility] [employer] [employer] 10-15-2022 11:07-0400 Heart rate 73 /min Shannon Robert [facility], [facility].; [employer], [facility]. 10-15-2022 11:07-0400 Systolic blood pressure 122 mm[Hg] Shannon Benson [facility] [employer] 10-02-2022 08:19-0400 Body height 172.[address] [facility] [employer] 10-02-2022 08:19-0400 Body mass index (BMI) [Ratio] 50.33 kg/m2 Pat Stuckey [facility] [employer] [facility] [employer] 10-02-2022 08:19-0400 Body surface area Derived from formula 2.53 m2 [facility] Yesica [facility] [employer] [facility] [employer] 10-02-2022 08:19-0400 Body temperature 97.3 [degF] Shannon Robert [facility] [employer] [facility] [employer] 10-02-2022 08:19-0400 Body weight 150.14 kg Shannon Robert DECK CADET [facility] [employer] [facility] 10-02-2022 08:19-0400 Diastolic blood pressure 79 mm[Hg] Shannon Robert DECK CADET [facility] [employer] [facility] 10-02-2022 08:19-0400 Heart rate 76 /min Pat Stuckey [facility], [facility] [employer] [facility] 10-02-2022 08:19-0400 Inhaled oxygen concentration 20 % Shannon Robert [facility] [employer] [facility] 10-02-2022 08:19-0400 SaO2% (BldA) [Mass fraction] 93 % Shannon Robert DECK CADET [facility] [facility] 10-02-2022 08:19-0400 Systolic blood pressure 156 mm[Hg] Shannon Benson DECK CADET [facility] [employer] [facility] 08-01-2022 08:00-0500 Body height 172.[address] [facility] [employer] [facility] 08-01-2022 08:00-0500 Body mass index (BMI) [Ratio] 49.26 kg/m2 Pat Stuckey [facility], [facility] [employer] [facility] 08-01-2022 08:00-0500 Body surface area Derived from formula 2.51 m2 [facility] Yesica [facility], [facility].; [facility] [employer] [facility] 08-01-2022 08:00-0500 Body weight 146.[address] [facility], [facility] [employer] [employer] 08-01-2022 08:00-0500 Diastolic blood pressure 71 mm[Hg] Shannon Robert DECK CADET [facility] [employer] [employer] 08-01-2022 08:00-0500 Heart rate 73 /min Shannon Robert [facility], [facility] [employer] [facility] 08-01-2022 08:00-0500 Systolic blood pressure 112 mm[Hg] Shannon Benson DECK CADET [facility] [employer] [facility] 06-25-2022 14:26-0500 Body height 172.72 cm Shannon Robert DECK CADET [facility] [employer] 06-25-2022 14:26-0500 Body mass index (BMI) [Ratio] 48.96 kg/m2 Shannon Robert [facility], [facility] [employer] 06-25-2022 14:26-0500 Body surface area Derived from formula 2.5 m2 Shannon Robert DECK [employer]ET [place] [facility], Inc.; [employer], [employer] 06-25-2022 14:26-0500 Body weight 146.[address] [facility], Inc.; [employer], [employer] 06-25-2022 14:26-0500 Diastolic blood pressure 79 mm[Hg] Shannon Robert DECK CADET [facility], Inc.; [employer], [employer] 06-25-2022 14:26-0500 Heart rate 69 /min Shannon Robert [facility], Inc.; [employer], [employer] 06-25-2022 14:26-0500 Systolic blood pressure 131 mm[Hg] Shannon Benson DECK CADET [facility], Inc.; [employer], [employer] 02-06-2022 10:03-0400 Body height 172.72 cm Shannon Robert DECK CADET [facility], Inc.; [employer], [employer] 02-06-2022 10:03-0400 Body mass index (BMI) [Ratio] 49.26 kg/m2 Pat Stuckey [facility] [employer] [facility], Inc.; [employer], [employer] 02-06-2022 10:03-0400 Body surface area Derived from formula 2.51 m2 Pat Yesica [facility] [employer] [facility], Inc.; [employer], Inc. 08-23-2022 10:03-0400 Body weight 146.97 kg Shannon Robert DECK [employer]. 02-06-2022 10:03-0400 Diastolic blood pressure 66 mm[Hg] Shannon Robert DECK [employer]ET [employer], [employer] 02-06-2022 10:03-0400 Heart rate 73 /min Shannon Robert [facility] [employer] 02-06-2022 10:03-0400 Systolic blood pressure 105 mm[Hg] Shannon Boggs y DECK [employer]ET [employer] 12-26-2021 08:28-0400 Body height 172.72 cm Janelle Díaz MD Work Phone: [employer] 12-26-2021 08:28-0400 Body mass index (BMI) [Ratio] 48.81 kg/m2 Janelle Díaz MD Work Phone: [employer].; [employer] 12-26-2021 08:28-0400 Body surface area Derived from formula 2.5 m2 Janelle Díaz MD Work Phone: [employer].; [employer] 12-26-2021 08:28-0400 Body temperature 96.4 [degF] Janelle Díaz MD Work Phone: [employer].; [employer] 12-26-2021 08:28-0400 Body weight 145.61 kg Janelle Díaz MD Work Phone: [employer] 12-26-2021 08:28-0400 Diastolic blood pressure 80 mm[Hg] Janelle Díaz MD Work Phone: [employer] 12-26-2021 08:28-0400 Heart rate 86 /min Janelle Díaz MD Work Phone: [employer].; [employer] [facility], Inc. 12-26-2021 08:28-0400 Inhaled oxygen concentration 20 % Janelle Díaz MD Work Phone: [facility], [facility].; [facility], Inc. 12-26-2021 08:28-0400 SaO2% (BldA) [Mass fraction] 97 % Janelle Díaz MD Work Phone: [facility], [facility].; [employer] 12-26-2021 08:28-0400 Systolic blood pressure 130 mm[Hg] Janelle Díaz MD Work Phone: [facility], [facility].; [employer] [facility], [facility]. 08-07-2021 11:53-0500 Body height 172.72 cm [facility]leine [facility], Inc.; [employer], [employer] 08-07-2021 11:53-0500 Body mass index (BMI) [Ratio] 48.05 kg/m2 [facility] Yesica [facility], Inc.; [employer], [employer] 08-07-2021 11:53-0500 Body surface area Derived from formula 2.48 m2 [facility] Yesica [facility], [facility].; [employer], [employer] 08-07-2021 11:53-0500 Body weight 143.34 kg [facility], [facility].; [employer], [employer] 08-07-2021 11:53-0500 Diastolic blood pressure 62 mm[Hg] Pat [place] [facility], [facility].; [employer], [employer] 08-07-2021 11:53-0500 Heart rate 75 /min [facility] [employer], [employer] 08-07-2021 11:53-0500 Systolic blood pressure 98 mm[Hg] Shannon Yadavchristina emerson [facility] [employer] [facility], Inc.; [employer], [employer]. 03-01-2021 10:12-0400 Diastolic blood pressure 76 mm[Hg] Janelle Díaz MD Work Phone: [facility], [facility].; [employer], [employer] 03-01-2021 10:12-0400 Systolic blood pressure 132 mm[Hg] Janelle Díaz MD Work Phone: [place] [facility], [facility].; [employer], [employer] 03-01-2021 09:54-0400 Body height 172.72 cm Pat Yesica [facility], Inc.; [employer], Inc. 03-01-2021 09:54-0400 Body mass index (BMI) [Ratio] 48.5 kg/m2 [facility] Yesica [facility], Inc.; [employer], Inc[employer] 03-01-2021 09:54-0400 Body surface area Derived from formula 2.49 m2 Pat Stuckey [facility] [employer] [facility], Inc.; [employer], Inc. 03-01-2021 09:54-0400 Body weight 144.7 kg [facility] Yesica [facility], Inc.; [employer], Inc. 03-01-2021 09:54-0400 Diastolic blood pressure 78 mm[Hg] Pat Stuckey [facility], Inc.; [employer], Inc. 03-01-2021 09:54-0400 Heart rate 61 /min Pat Stuckey [facility], Inc.; [employer], Inc. 03-01-2021 09:54-0400 Systolic blood pressure 163 mm[Hg] Shannon Boggs [facility], Inc.; [employer], Inc[employer] 11-01-2020 08:49-0400 Body height 172.72 cm Pat Stuckey [facility], Inc.; [employer], Inc. 11-01-2020 08:49-0400 Body mass index (BMI) [Ratio] 48.66 kg/m2 Pat Stuckey [facility], Inc.; [employer], Inc. 11-01-2020 08:49-0400 Body surface area Derived from formula 2.5 m2 [facility] Center[facility], Inc.; [employer], [facility]. 11-01-2020 08:49-0400 Body weight 145.[address] [facility], [facility].; [facility], [facility]. 11-01-2020 08:49-0400 Diastolic blood pressure 62 mm[Hg] Shannon Robert [facility], Inc.; [facility], [facility]. 11-01-2020 08:49-0400 Heart rate 72 /min Shannon Robert [facility], Inc.; [facility], [facility]. 11-01-2020 08:49-0400 Systolic blood pressure 106 mm[Hg] Shannon Benson [facility], [facility].; [facility], [facility]. 09-09-2020 11:31-0400 Body height 172.[address] [facility], [facility].; [place] [employer] [facility], [facility]. 09-09-2020 11:31-0400 Body mass index (BMI) [Ratio] 48.69 kg/m2 Hortencia Peters [facility], [facility].; [facility], [facility]. 09-09-2020 11:31-0400 Body surface area Derived from formula 2.5 m2 [address]ort[address] LPN [facility], [facility].; [facility], [facility]. 09-09-2020 11:31-0400 Body temperature 97.4 [degF] Hortencia Peters [facility], [facility].; [facility], [facility]. 09-09-2020 11:31-0400 Body weight 145.24 kg [facility]encia [facility], [facility].; [place] [employer] [facility], [facility]. 09-09-2020 11:31-0400 Diastolic blood pressure 85 mm[Hg] Hortencia [facility], [facility].; [facility], [facility]. 09-09-2020 11:31-0400 Heart rate 75 /min Hortencia Peters LPN [facility], [facility].; [place] [employer] [facility], [facility]. 09-09-2020 11:31-0400 Systolic blood pressure 152 mm[Hg] Hortencia Peters LPN [facility], [facility].; [facility], [facility]. 04-29-2020 08:38-0500 Body height 172.72 cm Felicitas Sanford RN [employer] [facility], [employer].; [employer]. 04-29-2020 08:38-0500 Body mass index (BMI) [Ratio] 47.74 kg/m2 Felicitas Sanford RN [employer] [facility], Inc.; [employer], Inc[employer] 04-29-2020 08:38-0500 Body surface area Derived from formula 2.48 m2 Felicitas Sanford RN [employer] [facility].; [employer]. 04-29-2020 08:38-0500 Body weight 142.43 kg Felicitas Sanford RN [employer] [facility], [employer].; [employer]. 04-29-2020 08:38-0500 Diastolic blood pressure 80 mm[Hg] Felicitas Sanford RN [employer] [facility], [employer].; [employer]. 04-29-2020 08:38-0500 Heart rate 67 /min Felicitas Sanford RN [employer] [facility].; [employer]. 04-29-2020 08:38-0500 Systolic blood pressure 135 mm[Hg] Felicitas paul RN [employer] [facility].; [employer]. 12-09-2019 11:20-0400 Body height 172.72 cm Shannon Robert LPN [employer] [facility], [employer].; [employer], [employer]. 12-09-2019 11:20-0400 Body mass index (BMI) [Ratio] 47.9 kg/m2 Shannon Robert DECK [employer]ET [employer] [facility], [employer].; [employer]. 12-09-2019 11:20-0400 Body surface area Derived from formula 2.48 m2 Shannon Robert [employer] [facility], [employer].; [employer], [employer]. 12-09-2019 11:20-0400 Body temperature 97.1 [degF] Shannon Robert DEC[employer]ET [employer] [facility], Inc.; [employer], [employer]. 12-09-2019 11:20-0400 Body weight 142.88 kg Shannon Robert LPN [facility] [facility] [employer] 12-09-2019 11:20-0400 Diastolic blood pressure 83 mm[Hg] Shannon Robert [facility] [employer].; [employer], Inc[employer] 12-09-2019 11:20-0400 Heart rate 62 /min Shannon Robert [facility] [employer], [employer].; [employer], Inc[employer] 12-09-2019 11:20-0400 Systolic blood pressure 155 mm[Hg] Shannon Boggs y [facility] [employer] [employer], Inc[employer] 10-27-2019 08:29-0400 Body height 172.72 cm Janelle Díaz MD Work Phone: [employer].; [employer], [employer] 10-27-2019 08:29-0400 Body mass index (BMI) [Ratio] 48.5 kg/m2 Janelle Díaz MD Work Phone: [employer].; [employer] 10-27-2019 08:29-0400 Body surface area Derived from formula 2.49 m2 Janelle Díaz MD Work Phone: [employer].; [employer] 10-27-2019 08:29-0400 Body weight 144.7 kg Janelle Díaz MD Work Phone: [employer].; [employer] 10-27-2019 08:29-0400 Diastolic blood pressure 84 mm[Hg] Janelle Díaz MD Work Phone: [employer].; [employer] 10-27-2019 08:29-0400 Heart rate 65 /min Janelle Díaz MD Work Phone: [employer] 10-27-2019 08:29-0400 Systolic blood pressure 132 mm[Hg] Janelle Díaz MD Work Phone: [employer] 04-29-2019 09:14-0500 Body height 172.72 cm Janelle Díaz MD Work Phone: [employer].; [employer] 04-29-2019 09:14-0500 Body mass index (BMI) [Ratio] 46.98 kg/m2 Janelle Díaz MD Work Phone: [employer].; [employer], [employer] 04-29-2019 09:14-0500 Body surface area Derived from formula 2.46 m2 Janelle Díaz MD Work Phone: [employer].; [employer] 04-29-2019 09:14-0500 Body weight 140.16 kg Janelle Díaz MD Work Phone: [employer].; [employer] 04-29-2019 09:14-0500 Diastolic blood pressure 76 mm[Hg] Janelle Díaz MD Work Phone: [employer].; [employer] 04-29-2019 09:14-0500 Heart rate 65 /min Janelle Díaz MD Work Phone: [employer].; [employer] 04-29-2019 09:14-0500 Systolic blood pressure 142 mm[Hg] Janelle Díaz MD Work Phone: [employer].; [employer], [employer] 10-29-2018 08:16-0400 Body height 172.72 cm Janelle Díaz MD Work Phone: [employer].; [employer] 10-29-2018 08:16-0400 Body mass index (BMI) [Ratio] 46.68 kg/m2 Janelle Díaz MD Work Phone: [employer].; [employer] 10-29-2018 08:16-0400 Body surface area Derived from formula 2.45 m2 Janelle Díaz MD Work Phone: [employer].; [employer] 10-29-2018 08:16-0400 Body weight 139.26 kg Janelle Díaz MD Work Phone: [employer].; [employer]. 10-29-2018 08:16-0400 Diastolic blood pressure 68 mm[Hg] Janelle Díaz MD Work Phone: [employer].; [employer]. 10-29-2018 08:16-0400 Heart rate 73 /min Janelle Díaz MD Work Phone: [employer].; [employer]. 10-29-2018 08:16-0400 Inhaled oxygen concentration 20 % Janelle Díaz MD Work Phone: [employer].; [employer]. 10-29-2018 08:16-0400 SaO2% (BldA) [Mass fraction] 95 % Janelle Díaz MD Work Phone: [employer].; [employer]. 10-29-2018 08:16-0400 Systolic blood pressure 132 mm[Hg] Janelle Díaz MD Work Phone: [employer].; [employer]. 08-01-2018 08:43-0500 Body height 172.72 cm Felicitas Sanford RN [employer].; [employer]. 08-01-2018 08:43-0500 Body mass index (BMI) [Ratio] 47.13 kg/m2 Felicitas Sanford RN [employer].; [employer]. 08-01-2018 08:43-0500 Body surface area Derived from formula 2.46 m2 Felicitas Sanford RN [employer].; [employer]. 08-01-2018 08:43-0500 Body temperature 97.5 [degF] Felicitas Sanford RN [employer].; [employer]. 08-01-2018 08:43-0500 Body weight 140.62 kg Felicitas Sanford RN [employer].; [employer]. 08-01-2018 08:43-0500 Diastolic blood pressure 85 mm[Hg] Felicitas Sanford RN [employer].; [employer]. 08-01-2018 08:43-0500 Heart rate 81 /min Felicitas Sanford RN [employer].; [employer]. 08-01-2018 08:43-0500 Inhaled oxygen concentration 20 % Felicitas Sanford RN [employer].; [employer]. 08-01-2018 08:43-0500 SaO2% (BldA) [Mass fraction] 97 % Felicitas Sanford RN [employer].; [employer]. 08-01-2018 08:43-0500 Systolic blood pressure 150 mm[Hg] Felicitas paul RN [employer].; [employer]. 04-30-2018 07:27-0500 Body height 172.72 cm Janelle Díaz MD Work Phone: [employer].; [employer]. 04-30-2018 07:27-0500 Body mass index (BMI) [Ratio] 46.68 kg/m2 Janelle Díaz MD Work Phone: [employer].; [employer]. 04-30-2018 07:27-0500 Body surface area Derived from formula 2.45 m2 Janelle Díaz MD Work Phone: [employer].; [employer]. 04-30-2018 07:27-0500 Body weight 139.26 kg Janelle Díaz MD Work Phone: [employer].; [employer]. 04-30-2018 07:27-0500 Diastolic blood pressure 72 mm[Hg] Janelle Díaz MD Work Phone: [employer].; [employer]. 04-30-2018 07:27-0500 Heart rate 66 /min Janelle Díaz MD Work Phone: [employer].; [employer]. 04-30-2018 07:27-0500 Systolic blood pressure 124 mm[Hg] Janelle Díaz MD Work Phone: [employer] 10-29-2017 08:54-0400 Body height 172.72 cm Janelle Díaz MD Work Phone: [employer].; [employer]. 10-29-2017 08:54-0400 Body mass index (BMI) [Ratio] 46.98 kg/m2 Janelle Díaz MD Work Phone: [employer].; [employer]. 10-29-2017 08:54-0400 Body surface area Derived from formula 2.46 m2 Janelle Díaz MD Work Phone: [employer].; [employer]. 10-29-2017 08:54-0400 Body weight 140.16 kg Janelle Díaz MD Work Phone: [employer].; [employer]. 10-29-2017 08:54-0400 Diastolic blood pressure 70 mm[Hg] Janelle Díaz MD Work Phone: [employer].; [employer]. 10-29-2017 08:54-0400 Heart rate 61 /min Janelle Díaz MD Work Phone: [employer].; [employer]. 10-29-2017 08:54-0400 Systolic blood pressure 138 mm[Hg] Janelle Díaz MD Work Phone: [employer].; [employer]. 05-18-2017 08:38-0500 Body height 172.72 cm Neilee L Vess DECK [employer]ET [employer]. 05-18-2017 08:38-0500 Body mass index (BMI) [Ratio] 45.92 kg/m2 Neilee L Vess [employer] 05-18-2017 08:38-0500 Body surface area Derived from formula 2.44 m2 Neilee L Vess [employer]. 05-18-2017 08:38-0500 Body temperature 96 [degF] Neilee L Vess [employer]. 05-18-2017 08:38-0500 Body weight 136.99 kg Neilee L Vess [employer]. 05-18-2017 08:38-0500 Diastolic blood pressure 82 mm[Hg] Neilee L Vess DECK [employer]ET [employer]. 05-18-2017 08:38-0500 Heart rate 95 /min Neilee L Vess [employer]. 05-18-2017 08:38-0500 Inhaled oxygen concentration 20 % Neilee L Mike [employer]. 05-18-2017 08:38-0500 SaO2% (BldA) [Mass fraction] 99 % [place] Maryellen Mckeon DECK [employer]ET [employer]. 05-18-2017 08:38-0500 Systolic blood pressure 145 mm[Hg] Neilee L Vess [employer]. 05-01-2017 07:26-0500 Body height 172.72 cm Janelle Díaz MD Work Phone: [employer].; [employer]. 05-01-2017 07:26-0500 Body mass index (BMI) [Ratio] 45.92 kg/m2 Janelle Díaz MD Work Phone: [employer].; [employer]. 05-01-2017 07:26-0500 Body surface area Derived from formula 2.44 m2 Janelle Díaz MD Work Phone: [employer].; [employer]. 05-01-2017 07:26-0500 Body weight 136.99 kg Janelle Díaz MD Work Phone: [employer].; [employer]. 05-01-2017 07:26-0500 Diastolic blood pressure 78 mm[Hg] Janelle Díaz MD Work Phone: [employer].; [employer]. 05-01-2017 07:26-0500 Heart rate 73 /min Janelle Díaz MD Work Phone: [employer].; [employer]. 05-01-2017 07:26-0500 Systolic blood pressure 136 mm[Hg] Janelle Díaz MD Work Phone: [employer].; [employer]. 04-02-2017 08:16-0400 Body height 172.72 cm [place] Maryellen Mckeon [facility].; [employer]. 04-02-2017 08:16-0400 Body mass index (BMI) [Ratio] 46.37 kg/m2 Neilee L Slated [facility].; [employer]. 04-02-2017 08:16-0400 Body surface area Derived from formula 2.45 m2 Neilee L Mike [facility] [employer]. 04-02-2017 08:16-0400 Body temperature 97.1 [degF] Neilee L Mike [facility] [employer]. 04-02-2017 08:16-0400 Body weight 138.35 kg Neilee L Mike [facility] [employer]. 04-02-2017 08:16-0400 Inhaled oxygen concentration 20 % Neilee L Slated [facility] [employer].; [employer]. 04-02-2017 08:16-0400 SaO2% (BldA) [Mass fraction] 95 % Neilee L Mike [facility] [employer].; [employer]. 10-05-2016 09:11-0400 Body weight 139.26 kg Carlita Watkins [employer].; [employer]. 10-05-2016 09:11-0400 Diastolic blood pressure 89 mm[Hg] Carlita Watkins LPN [employer] [facility], [facility].; [employer]. 10-05-2016 09:11-0400 Heart rate 75 /min Carlita Watkins LPN [employer] [facility], Inc.; [employer] 10-05-2016 09:11-0400 Inhaled oxygen concentration 20 % Carlita Watkins LPN [employer] [facility], Inc.; [employer]. 10-05-2016 09:11-0400 SaO2% (BldA) [Mass fraction] 97 % Carlita Watkins LPN [employer] [facility], [facility].; [employer]. 10-05-2016 09:11-0400 Systolic blood pressure 130 mm[Hg] Carlita Watkins LPN [employer] [facility], [facility].; [employer]. 07-05-2016 08:01-0500 Body height 172.72 cm Felicitas Sanford RN [employer] [facility], [employer].; [employer]. 07-05-2016 08:01-0500 Body mass index (BMI) [Ratio] 46.07 kg/m2 Felicitas Sanford RN [employer] [facility], [facility].; [employer]. 07-05-2016 08:01-0500 Body surface area Derived from formula 2.44 m2 Felicitas Sanford RN [employer] [facility], [employer].; [employer]. 07-05-2016 08:01-0500 Body temperature 98.1 [degF] Felicitas Sanford RN [employer] [facility], Inc.; [employer]. 07-05-2016 08:01-0500 Body weight 137.44 kg Felicitas Sanford RN [employer] [facility], [facility].; [employer]. 07-05-2016 08:01-0500 Diastolic blood pressure 87 mm[Hg] Felicitas Sanford RN [employer], [employer].; [employer]. 07-05-2016 08:01-0500 Heart rate 84 /min Felicitas Sanford RN [employer], [employer].; [employer]. 07-05-2016 08:01-0500 Inhaled oxygen concentration 20 % Felicitas Sanford RN [employer], [employer].; [employer]. 07-05-2016 08:01-0500 SaO2% (BldA) [Mass fraction] 96 % Felicitas Sanford RN [employer].; [employer]. 07-05-2016 08:01-0500 Systolic blood pressure 148 mm[Hg] Felicitas paul RN [employer].; [employer] 06-08-2016 09:19-0500 Body weight 136.53 kg Carlita Wtakins LPN [employer], [employer].; [employer]. 06-08-2016 09:19-0500 Diastolic blood pressure 80 mm[Hg] Carlita Watkins LPN [employer], [employer].; [employer]. 06-08-2016 09:19-0500 Heart rate 71 /min Carlita Watkins LPN [employer], [employer].; [employer]. 06-08-2016 09:19-0500 Systolic blood pressure 131 mm[Hg] Carlita Watkins LPN [employer], [employer].; [employer]. 02-08-2016 07:21-0400 Body height 172.72 cm Pat Yesica [facility] Inc.; [employer], [employer]. 02-08-2016 07:21-0400 Body mass index (BMI) [Ratio] 45.61 kg/m2 [facility] [place] [facility], Inc.; [employer]. 02-08-2016 07:21-0400 Body surface area Derived from formula 2.43 m2 [facility] Yesica [employer], [employer].; [employer]. 02-08-2016 07:21-0400 Body weight 136.08 kg [facility] Yesica [employer], [employer].; [employer]. 02-08-2016 07:21-0400 Diastolic blood pressure 103 mm[Hg] PatMadeleine Robert DEC[employer]ET [employer], [employer].; [employer], [employer]. 02-08-2016 07:21-0400 Heart rate 71 /min [facility] Yesica [employer].; [employer]. 02-08-2016 07:21-0400 Systolic blood pressure 166 mm[Hg] Shannon Benson DONALDO [employer].; [employer] 10-05-2015 07:10-0400 Body weight 136.08 kg Janelle Díaz MD Work Phone: [employer].; [employer] 10-05-2015 07:10-0400 Diastolic blood pressure 88 mm[Hg] Janelle Díaz MD Work Phone: [employer].; [employer]. 10-05-2015 07:10-0400 Heart rate 90 /min Janelle Díaz MD Work Phone: [employer].; [employer]. 10-05-2015 07:10-0400 Systolic blood pressure 142 mm[Hg] Janelle Díaz MD Work Phone: [employer].; [employer] 06-01-2015 06:55-0500 Body height 172.72 cm Janelle Díaz MD Work Phone: [employer].; [employer]. 06-01-2015 06:55-0500 Body mass index (BMI) [Ratio] 45.31 kg/m2 Janelle Díaz MD Work Phone: [employer].; [employer]. 06-01-2015 06:55-0500 Body surface area Derived from formula 2.42 m2 Janelle Díaz MD Work Phone: [employer].; [employer]. 06-01-2015 06:55-0500 Body weight 135.17 kg Janelle Díaz MD Work Phone: [employer].; [employer] 06-01-2015 06:55-0500 Diastolic blood pressure 90 mm[Hg] Janelle Díaz MD Work Phone: [employer].; [employer]. 06-01-2015 06:55-0500 Heart rate 64 /min Janelle Díaz MD Work Phone: [employer].; [employer]. 06-01-2015 06:55-0500 Systolic blood pressure 138 mm[Hg] Janelle Díaz MD Work Phone: [employer] 04-27-2015 07:14-0500 Body height 172.72 cm Janelle Díaz MD Work Phone: [employer].; [employer]. 04-27-2015 07:14-0500 Body mass index (BMI) [Ratio] 44.09 kg/m2 Janelle Díaz MD Work Phone: [employer].; [employer]. 04-27-2015 07:14-0500 Body surface area Derived from formula 2.39 m2 Janelle Díaz MD Work Phone: [employer].; [employer]. 04-27-2015 07:14-0500 Body weight 131.54 kg Janelle Díaz MD Work Phone: [employer].; [employer]. 04-27-2015 07:14-0500 Diastolic blood pressure 88 mm[Hg] Janelle Díaz MD Work Phone: [employer].; [employer]. 04-27-2015 07:14-0500 Heart rate 102 /min Janelle Díaz MD Work Phone: [employer].; [employer]. 04-27-2015 07:14-0500 Systolic blood pressure 156 mm[Hg] Janelle Díaz MD Work Phone: [employer].; [employer]. 01-26-2015 06:50-0400 Body height 172.72 cm Janelle Díaz MD Work Phone: [employer].; [employer]. 01-26-2015 06:50-0400 Body mass index (BMI) [Ratio] 44.4 kg/m2 Janelle Díaz MD Work Phone: [employer] 01-26-2015 06:50-0400 Body surface area Derived from formula 2.4 m2 Janelle Díaz MD Work Phone: [employer] 01-26-2015 06:50-0400 Body weight 132.45 kg Janelle Díaz MD Work Phone: [employer].; [employer]. 01-26-2015 06:50-0400 Diastolic blood pressure 86 mm[Hg] Janelle Díaz MD Work Phone: [employer] 01-26-2015 06:50-0400 Heart rate 66 /min Janelle Díaz MD Work Phone: [employer].; [employer]. 01-26-2015 06:50-0400 Systolic blood pressure 136 mm[Hg] Janelle Díaz MD Work Phone: [employer].; [employer]. 08-30-2014 08:50-0400 Body height 172.72 cm Janelle Díaz MD Work Phone: [employer].; [employer]. 08-30-2014 08:50-0400 Body mass index (BMI) [Ratio] 42.14 kg/m2 Janelle Díaz MD Work Phone: [employer].; [employer]. 08-30-2014 08:50-0400 Body surface area Derived from formula 2.35 m2 Janelle Díaz MD Work Phone: [employer].; [employer]. 08-30-2014 08:50-0400 Body weight 125.7 kg Janelle Díaz MD Work Phone: [employer].; [employer]. 08-30-2014 08:50-0400 Diastolic blood pressure 88 mm[Hg] Janelle Díaz MD Work Phone: [employer] 08-30-2014 08:50-0400 Heart rate 74 /min Janelle Díaz MD Work Phone: [employer].; [employer] 08-30-2014 08:50-0400 Systolic blood pressure 132 mm[Hg] Janelle Díaz MD Work Phone: [employer] 07-28-2014 07:09-0500 Body height 172.72 cm Janelle Díaz MD Work Phone: [employer].; [employer] 07-28-2014 07:09-0500 Body mass index (BMI) [Ratio] 41.36 kg/m2 Janelle Díaz MD Work Phone: [employer] 07-28-2014 07:09-0500 Body surface area Derived from formula 2.33 m2 Janelle Díaz MD Work Phone: [employer].; [employer] 07-28-2014 07:09-0500 Body weight 123.38 kg Janelle Díaz MD Work Phone: [employer].; [employer] 07-28-2014 07:09-0500 Diastolic blood pressure 92 mm[Hg] Janelle Díaz MD Work Phone: [employer] 07-28-2014 07:09-0500 Heart rate 71 /min Janelle Díaz MD Work Phone: [employer].; [employer] 07-28-2014 07:09-0500 Systolic blood pressure 162 mm[Hg] Janelle Díaz MD Work Phone: [employer].; [employer] 07-13-2014 08:05-0500 Body height 172.72 cm [facility] [employer] 07-13-2014 08:05-0500 Body mass index (BMI) [Ratio] 41.97 kg/m2 [facility] [employer] 07-13-2014 08:05-0500 Body surface area Derived from formula 2.34 m2 Shannon [facility] [employer] 07-13-2014 08:05-0500 Body weight 125.19 kg Shannon [facility] [employer] 07-13-2014 08:05-0500 Diastolic blood pressure 82 mm[Hg] Shannon Robert [facility] [employer] 07-13-2014 08:05-0500 Heart rate 75 /min Shannon [facility] [employer] 07-13-2014 08:05-0500 Systolic blood pressure 158 mm[Hg] Shannon Boggs [facility] [employer] 07-01-2014 18:28-0500 Body height 172.72 cm Janelle Díaz MD Work Phone: [employer].; [employer] 07-01-2014 18:28-0500 Body mass index (BMI) [Ratio] 41.97 kg/m2 Janelle Díaz MD Work Phone: [employer].; [employer] 07-01-2014 18:28-0500 Body surface area Derived from formula 2.34 m2 Janelle Díaz MD Work Phone: [employer].; [employer] 07-01-2014 18:28-0500 Body temperature 98.3 [degF] Janelle Díaz MD Work Phone: [employer].; [employer] 07-01-2014 18:28-0500 Body weight 125.19 kg Janelle Díaz MD Work Phone: [employer].; [employer]. 07-01-2014 18:28-0500 Diastolic blood pressure 94 mm[Hg] Janelle Díaz MD Work Phone: [employer] 07-01-2014 18:28-0500 Heart rate 94 /min Janelle Díaz MD Work Phone: [employer].; [employer]. 07-01-2014 18:28-0500 Inhaled oxygen concentration 20 % Janelle íDaz MD Work Phone: [employer].; [employer]. 07-01-2014 18:28-0500 SaO2% (BldA) [Mass fraction] 97 % Janelle Díaz MD Work Phone: [employer].; [employer]. 07-01-2014 18:28-0500 Systolic blood pressure 127 mm[Hg] Janelle Díaz MD Work Phone: [employer].; [employer]. 02-24-2014 15:07-0400 Body height 172.72 cm Janelle Díaz MD Work Phone: [employer].; [employer]. 02-24-2014 15:07-0400 Body mass index (BMI) [Ratio] 42.27 kg/m2 Janelle Díaz MD Work Phone: [employer].; [employer]. 02-24-2014 15:07-0400 Body surface area Derived from formula 2.35 m2 Janelle Díaz MD Work Phone: [employer].; [employer]. 02-24-2014 15:07-0400 Body weight 126.1 kg Janelle Díaz MD Work Phone: [employer].; [employer]. 02-24-2014 15:07-0400 Diastolic blood pressure 80 mm[Hg] Janelle Díaz MD Work Phone: [employer].; [employer]. 02-24-2014 15:07-0400 Heart rate 90 /min Janelle Díaz MD Work Phone: [employer] 02-24-2014 15:07-0400 Systolic blood pressure 124 mm[Hg] Janelel Díaz MD Work Phone: [employer] 11-24-2013 15:05-0400 Body height 172.72 cm Shannon Robert [facility] [employer] 11-24-2013 15:05-0400 Body mass index (BMI) [Ratio] 42.73 kg/m2 Shannon Robert [facility] [employer] 11-24-2013 15:05-0400 Body surface area Derived from formula 2.36 m2 Shannon Robert [facility] [employer] 11-24-2013 15:05-0400 Body weight 127.46 kg Shannon Robert [facility] [employer] 11-24-2013 15:05-0400 Diastolic blood pressure 77 mm[Hg] Shannon Robert [facility] [employer] 11-24-2013 15:05-0400 Heart rate 74 /min Shannon Robert [facility] [employer] 11-24-2013 15:05-0400 Systolic blood pressure 150 mm[Hg] Shannon Boggs idania [employer] 11-06-2013 08:15-0400 Body weight 127.46 kg Carlita Watkins [employer] 11-06-2013 08:15-0400 Diastolic blood pressure 87 mm[Hg] Carlita Watkins [employer] 11-06-2013 08:15-0400 Heart rate 75 /min Carlita Watkins [facility] [employer]. 11-06-2013 08:15-0400 Systolic blood pressure 153 mm[Hg] Carlita Watkins LPN [employer] 10-21-2013 15:00-0400 Body height 172.72 cm Janelle Díaz MD Work Phone: [employer] 10-21-2013 15:00-0400 Body mass index (BMI) [Ratio] 42.63 kg/m2 Janelle Díaz MD Work Phone: [employer].; [employer]. 10-21-2013 15:00-0400 Body surface area Derived from formula 2.36 m2 Janelle Díaz MD Work Phone: [employer].; [employer]. 10-21-2013 15:00-0400 Body weight 127.18 kg Janelle Díaz MD Work Phone: [employer].; [employer] 10-21-2013 15:00-0400 Diastolic blood pressure 82 mm[Hg] Janelle Díaz MD Work Phone: [employer] 10-21-2013 15:00-0400 Heart rate 94 /min Janelle Díaz MD Work Phone: [employer].; [employer]. 10-21-2013 15:00-0400 Systolic blood pressure 142 mm[Hg] Janelle Díaz MD Work Phone: [employer].; [employer]. 06-19-2013 16:06-0500 Body weight 119.75 kg Carlita Watkins LPN [employer] 06-19-2013 16:06-0500 Diastolic blood pressure 96 mm[Hg] Carlita Watkins LPN [employer].; [employer]. 06-19-2013 16:06-0500 Heart rate 101 /min Carlita Watkins LPN [employer].; [employer]. 06-19-2013 16:06-0500 Systolic blood pressure 136 mm[Hg] Carlita Watkins LPN [employer].; [employer]. 06-16-2013 08:18-0500 Body height 172.72 cm Janelle Díaz MD Work Phone: [employer].; [employer]. 06-16-2013 08:18-0500 Body mass index (BMI) [Ratio] 40.46 kg/m2 Janelle Díaz MD Work Phone: [employer].; [employer]. 06-16-2013 08:18-0500 Body surface area Derived from formula 2.31 m2 Janelle Díaz MD Work Phone: [employer].; [employer]. 06-16-2013 08:18-0500 Body temperature 97.5 [degF] Janelle Díaz MD Work Phone: [employer].; [employer]. 06-16-2013 08:18-0500 Body weight 120.71 kg Janelle Díaz MD Work Phone: [employer].; [employer]. 06-16-2013 08:18-0500 Diastolic blood pressure 111 mm[Hg] Janelle Díaz MD Work Phone: [employer].; [employer]. 06-16-2013 08:18-0500 Heart rate 79 /min Janelle Díaz MD Work Phone: [employer].; [employer]. 06-16-2013 08:18-0500 Inhaled oxygen concentration 20 % Janelle Díaz MD Work Phone: [employer]; [employer]. 06-16-2013 08:18-0500 SaO2% (BldA) [Mass fraction] 97 % Janelle Díaz MD Work Phone: [employer].; [employer]. 06-16-2013 08:18-0500 Systolic blood pressure 161 mm[Hg] Janelle Díaz MD Work Phone: [employer].; [employer]. 01-27-2013 15:04-0400 Body height 172.72 cm Janelle Díaz MD Work Phone: [employer].; [employer]. 01-27-2013 15:04-0400 Body mass index (BMI) [Ratio] 40.46 kg/m2 Janelle Díaz MD Work Phone: [employer].; [employer]. 01-27-2013 15:04-0400 Body surface area Derived from formula 2.31 m2 Janelle Díaz MD Work Phone: [employer].; [employer]. 01-27-2013 15:04-0400 Body weight 120.71 kg Janelle Díaz MD Work Phone: [employer].; [employer]. 01-27-2013 15:04-0400 Diastolic blood pressure 80 mm[Hg] Janelle Díaz MD Work Phone: [employer].; [employer]. 01-27-2013 15:04-0400 Heart rate 77 /min Janelle Díaz MD Work Phone: [employer].; [employer]. 01-27-2013 15:04-0400 Systolic blood pressure 132 mm[Hg] Janelle Díaz MD Work Phone: [employer].; [employer]. 09-18-2012 16:11-0400 Body temperature 97.7 [degF] Neilee L Vess [employer]. 09-18-2012 16:11-0400 Body weight 115.21 kg Neilee L Vess [employer]. 09-18-2012 16:11-0400 Diastolic blood pressure 80 mm[Hg] Neilee L Vess [employer] [facility], [facility]. 09-18-2012 16:11-0400 Heart rate 94 /min Traceyenochchristina Maryellen Mike [facility] [place], [facility].; [employer] [facility], [facility]. 09-18-2012 16:11-0400 Inhaled oxygen concentration 20 % Lisachristina Maryellen Mike [facility] [place], [facility].; [employer], [employer]. 09-18-2012 16:11-0400 SaO2% (BldA) [Mass fraction] 97 % Lindsay Mckeon [facility] [place], [facility].; [employer], [facility]. 09-18-2012 16:11-0400 Systolic blood pressure 126 mm[Hg] Lisachristina Maryellen Mckeon [facility] [place], [facility].; [employer] [facility], [facility]. 09-09-2012 08:24-0400 Body height 172.72 cm Marsha Obrien [facility], [facility].; [employer], [employer]. 09-09-2012 08:24-0400 Body mass index (BMI) [Ratio] 40.05 kg/m2 Marsha Obrien [facility] [place], [facility].; [employer] [facility], [facility]. 09-09-2012 08:24-0400 Body surface area Derived from formula 2.[address] [facility] [place], [facility].; [employer] [facility], [facility]. 09-09-2012 08:24-0400 Body temperature 98.2 [degF] Marsha Obrien [facility] [place], Inc.; [employer], [facility]. 09-09-2012 08:24-0400 Body weight 119.47 kg [facility] [employer] [facility], [facility].; [employer], [facility]. 09-09-2012 08:24-0400 Diastolic blood pressure 132 mm[Hg] Marsha Obrien [facility] [employer] [facility], [facility].; [employer], [facility]. 09-09-2012 08:24-0400 Heart rate 92 /min Marsha Obrien LPN [employer] [facility], [facility].; [employer] [facility]. 09-09-2012 08:24-0400 Inhaled oxygen concentration 20 % Marsha Obrien [employer] [facility], [facility].; [employer] [facility] CenterPixta [facility]. 09-09-2012 08:24-0400 SaO2% (BldA) [Mass fraction] 97 % Marsha Obrien LPN [facility], [facility].; [employer] [facility] CenterSport[facility]. 09-09-2012 08:24-0400 Systolic blood pressure 165 mm[Hg] Marsha Obrien LPN [facility], [facility].; [employer] [facility]. 08-05-2012 08:15-0500 Body height 172.72 cm Blanka Gallo LPN [facility], [facility].; [employer] [facility]. 08-05-2012 08:15-0500 Body mass index (BMI) [Ratio] 40.29 kg/m2 Blanka Gallo LPN [employer] [facility], [facility].; [employer] [facility] Center[facility]. 08-05-2012 08:15-0500 Body surface area Derived from formula 2.3 m2 Blanka Gallo LPN [employer] [facility], [facility].; [employer]. 08-05-2012 08:15-0500 Body temperature 96.8 [degF] Blanka Gallo LPN [employer] [facility], [facility].; [employer]. 08-05-2012 08:15-0500 Body weight 120.2 kg Blanka Gallo LPN [employer] [facility], [facility].; [employer] [facility]. 08-05-2012 08:15-0500 Diastolic blood pressure 88 mm[Hg] Blanka Gallo LPN [employer] [facility], [facility].; [employer]. 08-05-2012 08:15-0500 Heart rate 84 /min Blanka Gallo LPN [employer] [facility], [facility].; [employer]. 08-05-2012 08:15-0500 Inhaled oxygen concentration 20 % Blanka Gallo LPN [employer] [facility], [facility].; [employer]. 08-05-2012 08:15-0500 SaO2% (BldA) [Mass fraction] 94 % Blanka Gallo LPN [employer] [facility], [facility].; [employer]. 08-05-2012 08:15-0500 Systolic blood pressure 158 mm[Hg] Blanka Negron re [employer].; [employer]. 04-28-2012 13:54-0500 Body height 172.72 [facility] [employer] Work Phone: [employer].; [employer]. 04-28-2012 13:54-0500 Body mass index (BMI) [Ratio] 40.44 kg/m2 [facility] [employer] Work Phone: [employer].; [employer]. 04-28-2012 13:54-0500 Body surface area Derived from formula 2.31 m2 [facility] [employer] Work Phone: [employer].; [employer]. 04-28-2012 13:54-0500 Body weight 120.66 kg [facility] [employer] Work Phone: [employer].; [employer]. 04-28-2012 13:54-0500 Diastolic blood pressure 72 mm[Hg] Aixa Jossy [employer] Work Phone: [employer].; [employer]. 04-28-2012 13:54-0500 Heart rate 84 /min Aixa Jossy [employer] Work Phone: [employer].; [employer]. 04-28-2012 13:54-0500 Systolic blood pressure 127 mm[Hg] Aixa Jossy [employer] Work Phone: [employer].; [employer]. 12-24-2011 15:21-0400 Body height 172.72 cm [facility] [employer] Work Phone: [employer].; [employer]. 12-24-2011 15:21-0400 Body mass index (BMI) [Ratio] 40.44 kg/m2 Aixa Jossy [employer] Work Phone: [employer].; [employer]. 12-24-2011 15:21-0400 Body surface area Derived from formula 2.31 m2 Aixa Jossy [employer] Work Phone: [employer].; [employer]. 12-24-2011 15:21-0400 Body weight 120.66 kg Aixa Jossy [employer] Work Phone: [employer].; [employer]. 12-24-2011 15:21-0400 Diastolic blood pressure 79 mm[Hg] Aixa Jossy [employer] Work Phone: [employer].; [employer]. 12-24-2011 15:21-0400 Heart rate 83 /min Aixa Jossy [employer] Work Phone: [employer].; [employer]. 12-24-2011 15:21-0400 Systolic blood pressure 123 mm[Hg] Aixa Jossy [employer] Work Phone: [employer].; [employer]. 09-24-2011 15:19-0400 Body height 172.72 cm Aixa Jossy [employer] Work Phone: [employer].; [employer]. 09-24-2011 15:19-0400 Body mass index (BMI) [Ratio] 42.42 kg/m2 Aixa Jossy [employer] Work Phone: [employer].; [employer]. 09-24-2011 15:19-0400 Body surface area Derived from formula 2.35 m2 Aixa Jossy [employer] Work Phone: [employer].; [employer]. 09-24-2011 15:19-0400 Body temperature 97 [degF] Aixa Jossy [employer] Work Phone: [employer].; [employer]. 09-24-2011 15:19-0400 Body weight 126.55 kg Aixa Jossy [employer] Work Phone: [employer] 09-24-2011 15:19-0400 Diastolic blood pressure 76 mm[Hg] Aixa Jossy [employer] Work Phone: [employer].; [employer] 09-24-2011 15:19-0400 Heart rate 76 /min Aixa Jossy [employer] Work Phone: [employer].; [employer] 09-24-2011 15:19-0400 Systolic blood pressure 120 mm[Hg] Aixa Jossy [employer] Work Phone: [employer].; [employer] 08-16-2011 08:10-0500 Body height 172.72 cm Janelle Díaz MD Work Phone: [employer] 08-16-2011 08:10-0500 Body mass index (BMI) [Ratio] 42.42 kg/m2 Janelle Díaz MD Work Phone: [employer] 08-16-2011 08:10-0500 Body surface area Derived from formula 2.35 m2 Janelle Díaz MD Work Phone: [employer].; [employer] 08-16-2011 08:10-0500 Body temperature 97.8 [degF] Janelle Díaz MD Work Phone: [employer] 08-16-2011 08:10-0500 Body weight 126.55 kg Janelle Díaz MD Work Phone: [employer].; [employer]. 08-16-2011 08:10-0500 Diastolic blood pressure 93 mm[Hg] Janelle Díaz MD Work Phone: [employer] 08-16-2011 08:10-0500 Heart rate 75 /min Janelle Díaz MD Work Phone: [employer].; [employer]. 08-16-2011 08:10-0500 Inhaled oxygen concentration 20 % Janelle Díaz MD Work Phone: [facility].; [employer]. 08-16-2011 08:10-0500 SaO2% (BldA) [Mass fraction] 95 % Janelle Díaz MD Work Phone: [employer] [facility].; [employer]. 08-16-2011 08:10-0500 Systolic blood pressure 164 mm[Hg] Janelle Díaz MD Work Phone: [employer] [facility].; [employer]. 07-09-2011 18:14-0500 Body weight 126.21 kg Marsha Obrien LPN [employer] [facility].; [employer]. 07-09-2011 18:14-0500 Diastolic blood pressure 100 mm[Hg] Marsha Obrien LPN [employer] [facility].; [employer]. 07-09-2011 18:14-0500 Heart rate 81 /min Marsha Obrien LPN [employer] [facility].; [employer]. 07-09-2011 18:14-0500 Systolic blood pressure 163 mm[Hg] Marsha Obrien LPN [employer] [facility].; [employer], [employer]. 06-25-2011 15:34-0500 Body height 172.72 cm Aixa PROnoise [facility] Work Phone: [employer].; [employer]. 06-25-2011 15:34-0500 Body mass index (BMI) [Ratio] 41.97 kg/m2 [facility] Work Phone: [employer].; [employer]. 06-25-2011 15:34-0500 Body surface area Derived from formula 2.34 m2 Aixa Jossy [facility] Work Phone: [employer].; [employer]. 06-25-2011 15:34-0500 Body weight 125.19 kg [facility] [employer] Work Phone: [employer].; [employer] 06-25-2011 15:34-0500 Diastolic blood pressure 87 mm[Hg] Aixa Jossy [employer] Work Phone: [employer].; [employer] 06-25-2011 15:34-0500 Heart rate 80 /min Aixa Jossy [employer] Work Phone: [employer].; [employer], [employer] 06-25-2011 15:34-0500 Systolic blood pressure 152 mm[Hg] Aixa Jossy [employer] Work Phone: [employer].; [employer] 06-02-2011 09:28-0500 Body weight 123.38 kg Berna Mccoy PA-C Work Phone: [employer].; [employer], [employer]. Work Phone: 06-02-2011 09:28-0500 Diastolic blood pressure 85 mm[Hg] Berna Mccoy PA-C Work Phone: [employer].; [employer] Work Phone: 06-02-2011 09:28-0500 Heart rate 71 /min Berna Mccoy PA-C Work Phone: [employer].; [employer]. Work Phone: 06-02-2011 09:28-0500 Inhaled oxygen concentration 20 % Berna Wrighter PA-C Work Phone: [employer].; [employer]. Work Phone: 06-02-2011 09:28-0500 SaO2% (BldA) [Mass fraction] 97 % Berna Wrighter PA-C Work Phone: [employer].; [employer]. Work Phone: 06-02-2011 09:28-0500 Systolic blood pressure 151 mm[Hg] Berna Mccoy PA-C Work Phone: [employer].; [employer]. Work Phone: 03-26-2011 15:20-0400 Body height 172.72 cm Aixa Jossy [employer] Work Phone: [employer].; [employer]. 03-26-2011 15:20-0400 Body mass index (BMI) [Ratio] 42.88 kg/m2 Aixa Jossy [employer] Work Phone: [employer].; [employer]. 03-26-2011 15:20-0400 Body surface area Derived from formula 2.37 m2 Aixa Jossy [employer] Work Phone: [employer].; [employer]. 03-26-2011 15:20-0400 Body weight 127.92 kg Aixa Jossy [employer] Work Phone: [employer].; [employer]. 03-26-2011 15:20-0400 Diastolic blood pressure 89 mm[Hg] Aixa Jossy [employer] Work Phone: [employer].; [employer]. 03-26-2011 15:20-0400 Heart rate 78 /min Aixa Jossy [employer] Work Phone: [employer].; [employer]. 03-26-2011 15:20-0400 Systolic blood pressure 150 mm[Hg] Aixa Jossy [employer] Work Phone: [employer].; [employer]. 12-25-2010 15:16-0400 Body weight 127.01 kg Aixa Jossy [employer] Work Phone: [employer].; [employer]. 12-25-2010 15:16-0400 Diastolic blood pressure 90 mm[Hg] Aixa Jossy [employer] Work Phone: [employer].; [employer]. 12-25-2010 15:16-0400 Heart rate 80 /min Aixa Fenton LPN Work Phone: [employer].; [employer] 12-25-2010 15:16-0400 Systolic blood pressure 136 mm[Hg] Aixa Fenton LPN Work Phone: [employer].; [employer]. 11-01-2010 08:08-0400 Body temperature 96.8 [degF] Shannon [facility].; [employer]. 11-01-2010 08:08-0400 Body weight 128.82 kg Shannon Rboert [facility].; [employer]. 11-01-2010 08:08-0400 Diastolic blood pressure 86 mm[Hg] Shannon [facility].; [employer]. 11-01-2010 08:08-0400 Heart rate 82 /min Shannon [facility].; [employer]. 11-01-2010 08:08-0400 Inhaled oxygen concentration 20 % Shannon [facility], [employer].; [employer]. 11-01-2010 08:08-0400 SaO2% (BldA) [Mass fraction] 97 % Shannon [facility].; [employer]. 11-01-2010 08:08-0400 Systolic blood pressure 139 mm[Hg] Shannon Boggs y [facility].; [employer]. 07-13-2010 14:16-0500 Body weight 127.01 kg Neilee L Vess [facility].; [employer]. 07-13-2010 14:16-0500 Diastolic blood pressure 86 mm[Hg] Neilee L Vess [facility].; [employer]. 07-13-2010 14:16-0500 Heart rate 70 /min Neilee L Vess [employer] [facility] [employer] 07-13-2010 14:16-0500 Systolic blood pressure 159 mm[Hg] Lindsay Mckeon [facility] [employer] 06-21-2010 08:28-0500 Body height 172.72 cm Shannon Robert [facility] [employer] 06-21-2010 08:28-0500 Body mass index (BMI) [Ratio] 41.2 kg/m2 Shannon Robert [facility] [employer] 06-21-2010 08:28-0500 Body surface area Derived from formula 2.33 m2 Pat Yesica [facility] [employer] 06-21-2010 08:28-0500 Body temperature 96.7 [degF] Shannon Robert [facility] [employer] 06-21-2010 08:28-0500 Body weight 122.93 kg Shannon Robert [facility] [employer] 06-21-2010 08:28-0500 Diastolic blood pressure 91 mm[Hg] Shannon Robert [employer] [facility] [employer] 06-21-2010 08:28-0500 Heart rate 80 /min Shannon Robert [facility] [employer] 06-21-2010 08:28-0500 Systolic blood pressure 157 mm[Hg] Shannon Benson [employer] [facility] [employer] 05-01-2010 15:59-0500 Body weight 120.66 kg Aixa Fenton [employer] Work Phone: [employer] 05-01-2010 15:59-0500 Diastolic blood pressure 83 mm[Hg] Aixa Jossy [employer] Work Phone: [employer] 05-01-2010 15:59-0500 Heart rate 69 /min Aixa Fenton LPN Work Phone: [employer] 05-01-2010 15:59-0500 Systolic blood pressure 169 mm[Hg] Aixa Fenton LPN Work Phone: [employer] Encounters Encounter Date Encounter Type Care Provider Facility Start: 07-01-2023 End: 07-01-2023 ambulatory [facility] Start: 05-20-2023 End: 05-20-2023 Office outpatient visit 15 minutes Janelle Díaz MD Work Phone: [employer]. Start: 05-18-2023 End: 05-18-2023 Emergency department patient visit FAUSTINO CHARLES [facility] Start: 05-16-2023 End: 05-16-2023 Emergency department patient visit JANELLE DÍAZ [facility] Start: 05-16-2023 End: 05-16-2023 Office outpatient visit 25 minutes Janelle Díaz MD Work Phone: [employer]. Start: 04-29-2023 End: 04-29-2023 Office outpatient visit 15 minutes Janelle Díaz MD Work Phone: [employer]. Start: 04-02-2023 End: 04-02-2023 ambulatory [facility] Start: 02-11-2023 End: 02-11-2023 Patient encounter status Janelle Díaz MD Work Phone: [employer] Start: 02-11-2023 End: 02-11-2023 Periodic preventive med est patient 65yrs& older Janelle Díaz MD Work Phone: [employer]. Start: 02-11-2023 End: 02-11-2023 Emergency department patient visit KHANH CHINCHILLA [facility] Start: 02-05-2023 End: 02-05-2023 Janelle Díaz MD Work Phone: [employer]. Start: 01-01-2023 End: 01-01-2023 Janelle Díaz MD Work Phone: [employer]. Start: 12-24-2022 End: 12-24-2022 ambulatory [facility] Start: 11-13-2022 End: 11-13-2022 Office outpatient visit 15 minutes Janelle Díaz MD Work Phone: [employer]. Start: 10-19-2022 End: 10-19-[address] [facility] Start: 10-15-2022 End: 10-15-2022 Office outpatient visit 15 minutes Janelle Díaz MD Work Phone: [employer]. Start: 10-10-2022 End: 10-10-2022 Janelle Díaz MD Work Phone: [employer]. Start: 10-08-2022 End: 10-08-2022 [facility]: 10-02-2022 End: 10-02-2022 Office outpatient visit 15 minutes Janelle Díaz MD Work Phone: [employer]. Start: 09-26-2022 End: 09-26-2022 ambulatory [facility] Start: 08-01-2022 End: 08-01-2022 Office outpatient visit 25 minutes Janelle Díaz MD Work Phone: [employer]. Start: 06-25-2022 End: 06-25-2022 Office outpatient visit 15 minutes Janelle Díaz MD Work Phone: [employer]. Start: 06-22-2022 End: 06-22-2022 Janelle Díaz MD Work Phone: [employer]. Start: 02-06-2022 End: 02-06-2022 Patient encounter status Janelle Díaz MD Work Phone: [employer] Start: 02-06-2022 End: 02-06-2022 Periodic preventive med est patient 65yrs& older Janelle Díaz MD Work Phone: [employer]. Start: 02-01-2022 End: 02-01-2022 Janelle Díaz MD Work Phone: [employer]. Start: 01-16-2022 End: 01-16-2022 Janelle Díaz MD Work Phone: [employer]. Start: 12-26-2021 End: 12-26-2021 Office outpatient visit 15 minutes Janelle Díaz MD Work Phone: [employer]. Start: 08-07-2021 End: 08-07-2021 Office outpatient visit 25 minutes Janelle Díaz MD Work Phone: [employer]. Start: 07-03-2021 End: 07-03-2021 Janelle Díaz MD Work Phone: [employer]. Start: 03-01-2021 End: 03-01-2021 Office outpatient visit 25 minutes Janelle Díaz MD Work Phone: [employer]. Start: 01-02-2021 End: 01-02-2021 Janelle Díaz MD Work Phone: [employer]. Start: 11-01-2020 End: 11-02-2020 Janelle Díaz MD Work Phone: [employer]. Start: 11-01-2020 End: 11-01-2020 Office outpatient visit 25 minutes Janelle Díaz MD Work Phone: [employer]. Start: 09-09-2020 End: 09-09-2020 Janelle Díaz MD Work Phone: [employer]. Start: 09-09-2020 End: 09-09-2020 Office outpatient visit 15 minutes Janelle Díaz MD Work Phone: [employer]. Start: 06-23-2020 End: 06-23-2020 Janelle Díaz MD Work Phone: [employer]. Start: 04-29-2020 End: 04-29-2020 Office outpatient visit 25 minutes Janelle Díaz MD Work Phone: [employer]. Start: 02-18-2020 End: 02-18-2020 Janelle Díaz MD Work Phone: [employer]. Start: 12-24-2019 End: 12-24-2019 Janelle Díaz MD Work Phone: [employer]. Start: 12-09-2019 End: 12-09-2019 Office outpatient visit 15 minutes Janelle Díaz MD Work Phone: [employer]. Start: 10-27-2019 End: 10-27-2019 Office outpatient visit 25 minutes Janelle Díaz MD Work Phone: [employer]. Start: 04-29-2019 End: 04-29-2019 Janelle Díaz MD Work Phone: [employer]. Start: 04-29-2019 End: 04-29-2019 Initial preventive medicine new patient 63yrs&> Janelle Díaz MD Work Phone: [employer]. Start: 04-29-2019 End: 04-29-2019 Patient encounter status Janelle Díaz MD Work Phone: [employer] Start: 04-23-2019 End: 04-24-2019 Janelle Díaz MD Work Phone: [employer]. Start: 03-24-2019 End: 03-24-2019 Janelle Díaz MD Work Phone: [employer]. Start: 03-18-2019 End: 03-18-2019 Janelle Díaz MD Work Phone: [employer]. Start: 02-10-2019 End: 02-10-2019 Janelle Díaz MD Work Phone: [employer]. Start: 12-31-2018 End: 12-31-2018 Janelle Díaz MD Work Phone: [employer]. Start: 12-24-2018 End: 12-24-2018 Janelle Díaz MD Work Phone: [employer]. Start: 12-09-2018 End: 12-09-2018 Janelle Díaz MD Work Phone: [employer]. Start: 10-29-2018 End: 10-29-2018 Janelle Díaz MD Work Phone: [employer]. Start: 10-29-2018 End: 10-29-2018 Office outpatient visit 25 minutes Janelle Díaz MD Work Phone: [employer]. Start: 10-01-2018 End: 10-01-2018 Janelle Díaz MD Work Phone: [employer]. Start: 09-10-2018 End: 09-10-2018 Janelle Díaz MD Work Phone: [employer]. Start: 08-27-2018 End: 08-27-2018 Janelle Díaz MD Work Phone: [employer]. Start: 08-01-2018 End: 08-01-2018 Office outpatient visit 15 minutes Janelle Díaz MD Work Phone: [employer]. Start: 07-23-2018 End: 07-23-2018 Janelle Díaz MD Work Phone: [employer]. Start: 06-19-2018 End: 06-19-2018 Janelle Díaz MD Work Phone: [employer]. Start: 05-14-2018 End: 05-14-2018 Janelle Díaz MD Work Phone: [employer]. Start: 04-30-2018 End: 04-30-2018 Janelle Díaz MD Work Phone: [employer]. Start: 04-30-2018 End: 04-30-2018 Office outpatient visit 25 minutes Janelle Díaz MD Work Phone: [employer]. Start: 04-09-2018 End: 04-09-2018 Janelle Díaz MD Work Phone: [employer]. Start: 03-12-2018 End: 03-12-2018 Janelle Díaz MD Work Phone: [employer]. Start: 10-29-2017 End: 10-29-2017 Office outpatient visit 25 minutes Janelle Díaz MD Work Phone: [employer]. Start: 10-22-2017 End: 10-22-2017 Janelle Díaz MD Work Phone: [employer]. Start: 05-18-2017 End: 05-18-2017 Office outpatient visit 25 minutes Janelle Díaz MD Work Phone: [employer]. Start: 05-01-2017 End: 05-01-2017 Janelle Díaz MD Work Phone: [employer]. Start: 04-02-2017 End: 04-02-2017 Office outpatient visit 25 minutes Janelle Díaz MD Work Phone: [employer]. Start: 10-05-2016 End: 10-05-2016 Office outpatient visit 15 minutes Janelle Díaz MD Work Phone: [employer]. Start: 07-05-2016 End: 07-05-2016 Office outpatient visit 15 minutes Janelle Díaz MD Work Phone: [employer]. Start: 06-08-2016 End: 06-08-2016 Office outpatient visit 15 minutes Janelle Díaz MD Work Phone: [employer]. Start: 02-08-2016 End: 02-08-2016 Office outpatient visit 15 minutes Janelle Díaz MD Work Phone: [employer]. Start: 01-31-2016 End: 01-31-2016 Janelle Díaz MD Work Phone: [employer]. Start: 10-05-2015 End: 10-05-2015 Office outpatient visit 25 minutes Janelle Díaz MD Work Phone: [employer]. Start: 06-01-2015 End: 06-01-2015 Office outpatient visit 15 minutes Janelle Díaz MD Work Phone: [employer]. Start: 04-27-2015 End: 04-27-2015 Office outpatient visit 15 minutes Janelle Díaz MD Work Phone: [employer]. Start: 04-25-2015 End: 04-25-2015 Janelle Díaz MD Work Phone: [employer]. Start: 01-26-2015 End: 01-26-2015 Office outpatient visit 25 minutes Janelle Díaz MD Work Phone: [employer]. Start: 01-25-2015 End: 01-25-2015 Janelle Díaz MD Work Phone: [employer]. Start: 08-30-2014 End: 08-30-2014 Office outpatient visit 15 minutes Janelle Díaz MD Work Phone: [employer]. Start: 08-30-2014 End: 08-30-2014 Preprocedural examination done Janelle Díaz MD Work Phone: [employer] Start: 07-30-2014 End: 07-30-2014 Janelle Díaz MD Work Phone: [employer]. Start: 07-28-2014 End: 07-28-2014 Office outpatient visit 25 minutes Janelle Díaz MD Work Phone: [employer]. Start: 07-13-2014 End: 07-13-2014 Janelle Díaz MD Work Phone: [employer]. Start: 07-01-2014 End: 07-01-2014 Office outpatient visit 15 minutes Janelle Díaz MD Work Phone: [employer]. Start: 02-24-2014 End: 02-24-2014 Office outpatient visit 25 minutes Janelle Díaz MD Work Phone: [employer]. Start: 02-05-2014 End: 02-05-2014 Janelle Díaz MD Work Phone: [employer]. Start: 11-25-2013 End: 11-25-2013 Janelle Díaz MD Work Phone: [employer]. Start: 11-24-2013 End: 11-24-2013 Janelle Díaz MD Work Phone: [employer]. Start: 11-06-2013 End: 11-06-2013 Janelle Díaz MD Work Phone: [employer]. Start: 10-21-2013 End: 10-21-2013 Janelle Díaz MD Work Phone: [employer]. Start: 10-05-2013 End: 10-05-2013 Janelle Díaz MD Work Phone: [employer]. Start: 09-07-2013 End: 09-07-2013 Janelle Díaz MD Work Phone: [employer] Start: 06-24-2013 End: 06-24-2013 Janelle Díaz MD Work Phone: [employer]. Start: 06-19-2013 End: 06-19-2013 Janelle Díaz MD Work Phone: [employer]. Start: 06-16-2013 End: 06-16-2013 Janelle Díaz MD Work Phone: [employer]. Start: 05-16-2013 End: 05-16-2013 Janelle Díaz MD Work Phone: [employer]. Start: 04-21-2013 End: 04-22-2013 Janelle Díaz MD Work Phone: [employer]. Start: 01-27-2013 End: 01-27-2013 Janelle Díaz MD Work Phone: [employer]. Start: 09-18-2012 End: 09-18-2012 Janelle Díaz MD Work Phone: [employer]. Start: 09-09-2012 End: 09-10-2012 Janelle Díaz MD Work Phone: [employer]. Start: 09-01-2012 End: 09-01-2012 Janelle Díaz MD Work Phone: [employer]. Start: 08-05-2012 End: 08-05-2012 Janelle Díaz MD Work Phone: [employer]. Start: 04-28-2012 End: 04-28-2012 Janelle Díaz MD Work Phone: [employer]. Start: 12-24-2011 End: 12-24-2011 Janelle Díaz MD Work Phone: [employer]. Start: 09-24-2011 End: 09-24-2011 Janelle Díaz MD Work Phone: [employer]. Start: 08-16-2011 End: 08-16-2011 Janelle Díaz MD Work Phone: [employer]. Start: 07-09-2011 End: 07-09-2011 Janelle Díaz MD Work Phone: [employer]. Start: 06-27-2011 End: 06-27-2011 Janelle Díaz MD Work Phone: [employer]. Start: 06-25-2011 End: 06-25-2011 Janelle Díaz MD Work Phone: [employer]. Start: 06-02-2011 End: 06-02-2011 Janelle Díaz MD Work Phone: [employer]. Start: 03-26-2011 End: 03-29-2011 Janelle Díaz MD Work Phone: [employer]. Start: 01-17-2011 End: 01-17-2011 Janelle Díaz MD Work Phone: [employer]. Start: 12-25-2010 End: 12-28-2010 Janelle Díaz MD Work Phone: [employer]. Start: 11-03-2010 End: 11-03-2010 Janelle Díaz MD Work Phone: [employer]. Start: 11-01-2010 End: 11-01-2010 Janelle Díaz MD Work Phone: [employer]. Start: 09-05-2010 End: 09-06-2010 Janelle Daíz MD Work Phone: [employer]. Start: 07-26-2010 End: 07-26-2010 Janelle Díaz MD Work Phone: [employer]. Start: 07-15-2010 End: 07-17-2010 Janelle Díaz MD Work Phone: [employer]. Start: 07-13-2010 End: 07-13-2010 Janelle Díaz MD Work Phone: [employer]. Start: 06-21-2010 End: 06-21-2010 Janelle Díaz MD Work Phone: [employer]. Start: 06-07-2010 End: 06-07-2010 Janelle Díaz MD Work Phone: [employer]. Start: 05-29-2010 End: 05-29-2010 Janelle Díaz MD Work Phone: [employer]. Start: 05-01-2010 End: 05-04-2010 Janelle Díaz MD Work Phone: [employer]. Preprocedural examin ation done Felicitas Sanford RN [employer] Procedures Date Procedure Procedure Detail Performing Clinician Start: 05-16-2023 Urinalysis ZAFAR Pagan Plan of Treatment Date Care Activity Detail Author Start: 08-14-2023 [employer] Start: 08-05-2012 [employer] Immunizations Immunization Date Immunization Notes Care Provider Fa cility 02-11-2023 pneumococcal Conjuga te, unspecified formulation Janelle Díaz MD Work Phone: [employer] 02-11-2023 Janelle Díaz MD Work Phone: [employer] 10-26-2020 [facility] 09-28-2020 Janelle Díaz MD Work Phone[facility] 03-15-2020 influenza, high dose seasonal, preservative-free Janelle Díaz MD Work Phone: [facility] [employer] 04-29-2019 diphtheria, tetanus toxoids and acellular pertussis vaccine, unspecified formulation Janelle Díaz MD Work Phone: [facility] 04-29-2019 influenza virus vaccine, unspecified formulation Janelle Díaz MD Work Phone[facility] 04-29-2019 influenza, injectabl e, quadrivalent, contains preservative Janelle Díaz MD Work Phone: [facility] [employer] 04-17-2013 pneumococcal Conjuga te, unspecified formulation Janelle Díaz MD Work Phone[facility]; [facility] NEGATED: Highlighted row has not occurred!04-17-2013 pneumococcal polysaccharide vaccine, 23 valent Janelle Díaz MD Work Phone: [facility]; [employer] [facility] Payers Date Payer Category Payer Unknown [id number] 2.16.8 [id number] Unknown [id number] 2.16.8 [id number] 1955 Unknown [id number] 2.16.8 [id number] 1953 Unknown [id number] 2.16.8 [id number] 1953 Unknown [id number] 2.16.8 [id number] 1953 Unknown [id number] 2.16.8 [id number] 1953 Unknown [id number] 2.16.84 [id number] 1953 Unknown [id number] 2.16.84 [id number] 1955 Unknown [id number] 2.16.84 [id number] Medicare [id number] Unknown Unknown [id number] Social History Date Type Detail Facility [facility], [facility]. Goals Date Patient Goal Desired Activity /State 03-12-2018 Clinical Note 05-21-2023 Note Date & Type Note Facility 05-21-2023 Note . MICRO - Microbiology PROCEDURE: Blood Culture (bacterial) [O1 *1] SOURCE: Blood BODY SITE: COLLECTED DATE/TIME: 05/16/2023 11:40 EST RECEIVED DATE/TIME: 05/16/2023 18:46 EST START DATE/TIME: 05/16/2023 18:47 EST FREE TEXT SOURCE: FINAL REPORTS Final Report [] Verified Date/Time/Personnel: 05/21/2023 18:59 EST Blood Culture: No Growth at 5 days. PRELIMINARY REPORTS Preliminary Report [] Verified Date/Time/Personnel: 05/16/2023 19:59 EST Culture has been received in lab and is no growth to date. Routine cultures are held for 5 days. Order Comments O1: Blood Culture (bacterial) fax [phone] Performing Locations *1: This test was performed at: [facility], [address] [place] [address], [facility] , On license of [facility] ([place]) Clinical Note 05-21-2023 Note Date & Type Note Facility 05-21-2023 Note . MICRO - Microbiology PROCEDURE: Blood Culture (bacterial) [O1 *1] SOURCE: Blood BODY SITE: COLLECTED DATE/TIME: 05/16/2023 11:50 EST RECEIVED DATE/TIME: 05/16/2023 18:49 EST START DATE/TIME: 05/16/2023 18:49 EST FREE TEXT SOURCE: FINAL REPORTS Final Report [] Verified Date/Time/Personnel: 05/21/2023 18:59 EST Blood Culture: No Growth at 5 days. PRELIMINARY REPORTS Preliminary Report [] Verified Date/Time/Personnel: 05/16/2023 19:59 EST Culture has been received in lab and is no growth to date. Routine cultures are held for 5 days. Order Comments O1: Blood Culture (bacterial) fax [phone] Performing Locations *1: This test was performed at: [facility], [address] [place] [address], [facility] , On license of [facility] ([place]) Summary Purpose Family History Cerebrovascular Accident Status:Active Comment s:Father. Coronary Artery Disease Status:Active Comments :Mother. Father. Diabetes Mellitus Type II Status:Active Commen ts:Mother. Father. Hypertension Status:Active Comments:Mother. Father. Osteoarthritis Status:Active Comments:Mother. Father. Cerebrovascular Accident Status:Active Comment s:Father. Coronary Artery Disease Status:Active Comments :Mother. Father. Diabetes Mellitus Type II Status:Active Commen ts:Mother. Father. Hypertension Status:Active Comments:Mother. Father. Osteoarthritis Status:Active Comments:Mother. Father. Cerebrovascular Accident Status:Active Comment s:Father. Coronary Artery Disease Status:Active Comments :Mother. Father. Diabetes Mellitus Type II Status:Active Commen ts:Mother. Father. Hypertension Status:Active Comments:Mother. Father. Osteoarthritis Status:Active Comments:Mother. Father. Cerebrovascular Accident Status:Active Comment s:Father. Coronary Artery Disease Status:Active Comments :Mother. Father. Diabetes Mellitus Type II Status:Active Commen ts:Mother. Father. Hypertension Status:Active Comments:Mother. Father. Osteoarthritis Status:Active Comments:Mother. Father. Cerebrovascular Accident Status:Active Comment s:Father. Coronary Artery Disease Status:Active Comments :Mother. Father. Diabetes Mellitus Type II Status:Active Commen ts:Mother. Father. Hypertension Status:Active Comments:Mother. Father. Osteoarthritis Status:Active Comments:Mother. Father. Cerebrovascular Accident Status:Active Comment s:Father. Coronary Artery Disease Status:Active Comments :Mother. Father. Diabetes Mellitus Type II Status:Active Commen ts:Mother. Father. Hypertension Status:Active Comments:Mother. Father. Osteoarthritis Status:Active Comments:Mother. Father. Cerebrovascular Accident Status:Active Comment s:Father. Coronary Artery Disease Status:Active Comments :Mother. Father. Diabetes Mellitus Type II Status:Active Commen ts:Mother. Father. Hypertension Status:Active Comments:Mother. Father. Osteoarthritis Status:Active Comments:Mother. Father. Advance Directives No Advanced Directives Records FoundNo Advanced Directives Records FoundNo Advanced Directives Records Found Additional Source Comments (unrecognized sect ion and content) No Status Records FoundNo Status Records FoundNo Status Records Found INFORMATION SOURCE (unrecogn ized section and content) DATE CREATED AUTHOR AUTHOR'S ORGANIZ ATION 05/24/2023 [facility] ([place]) DATE CREATED AUTHOR AUTHOR'S ORGANIZ ATION 07/03/2023 [facility] FOR RECORDS PERTAINING TO PATIENTS WHO ARE OR HAVE BEEN ENROLLED IN A CHEMICAL DEPENDENCY/SUBSTANCEABUSE PROGRAM, SOME INFORMATION MAY BE OMITTED. This clinical summary was aggregated from multiple sources. Caution should be exercised in using it in the provision of clinical care. This summary normalizes information from multiple sources, and as a consequence, information in this document may materially change the coding, format and clinical context of patient data. In addition, data may be omitted in some cases. CLINICAL DECISIONS SHOULD BE BASED ON THE PRIMARY CLINICAL RECORDS. [employer] [facility]. provides no warranty or guarantee of the accuracy or completeness of information in this document.
== END | disposition home or self-care (01) ==
LOC: CT 07:53
PROVIDERS: PCP Family Medicine; Referring Provider Nurse Practitioner Acute Care; Visit Provider Nurse Practitioner Acute Care
DX: Z12.2 Encounter for screening for malignant neoplasm of respiratory organs (principal); Z87.891 Personal history of nicotine dependence
CPT/HCPCS: 71271

== ENCOUNTER → 2024-09-07 | Outpatient (CLI) | payer MEDICARE, SELFPAY ==
--- NOTE | 2024-09-07 13:43 | CT_ITS ---
EXAM: CT Chest, Lung Cancer Screening Without Intravenous Contrast CLINICAL INDICATION: QUIT SMOKING 2011 WITH 100 PACK YEARS TECHNIQUE: Axial computed tomography images of the chest without intravenous contrast using low dose (LDCT) lung cancer screening protocol. This CT exam was performed using one or more of the following dose reduction techniques: automated exposure control, adjustment of the mA and/or kV according to patient size, and/or use of iterative reconstruction technique. COMPARISON: CT Lung Cancer Screening dated 08/09/2023 FINDINGS: LUNGS AND PLEURAL SPACES: Lung emphysema. 2 mm subpleural pulmonary nodule of the lateral right upper lobe, stable. 3 mm nodule of the anterior right middle lobe, stable. Dependent atelectasis. No pneumothorax. No significant effusion. No new suspicious pulmonary nodules. HEART: Unremarkable. No cardiomegaly. No significant pericardial effusion. No significant coronary artery calcifications. 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 No acute fracture. No dislocation. SOFT TISSUES: Unremarkable. VASCULATURE: Unremarkable. No thoracic aortic aneurysm. LYMPH NODES: Unremarkable. No enlarged lymph nodes. CT/Low Dose CT Lung Screening IMPRESSION: 1. No new suspicious pulmonary nodules. 2. LUNG-RADS 2: Benign. Continue low-dose CT screening of the chest in 12 mon ths is recommended. Reading [facility]
== END | disposition home or self-care (01) ==
LOC: CT 13:33
PROVIDERS: PCP Family Medicine; Referring Provider Nurse Practitioner Acute Care; Visit Provider Nurse Practitioner Acute Care
DX: Z12.2 Encounter for screening for malignant neoplasm of respiratory organs (principal); F17.210 Nicotine dependence, cigarettes, uncomplicated
CPT/HCPCS: 71271

== ENCOUNTER → 2024-11-26 | Outpatient (CLI) | payer MEDICARE, SELFPAY ==
[2024-11-26 12:04] VITALS: PULSE 63; PULSE 65; PULSE 66; PULSE 74; PULSE 81; PULSE 82; PULSE 83; PULSE 85; O2SAT 92; O2SAT 93; O2SAT 94; O2SAT 96
--- NOTE | 2024-11-26 12:10 | CPS ---
PATIENT ARRIVED FOR WALK TEST IN A W/C. HE USED HIS CANE DURING THE TEST. HE TOOK 2 SHORT REST BREAKS DURING TESTING D/T KNEE AND BACK PAIN. TESTING WAS PERFORMED WITH PATIENT ON ROOM AIR. HE WAS ABLE TO WALK 599FT.
--- NOTE | 2024-11-30 10:19 | WT_ITS ---
PSN 6 Minute Walk Test 6 Minute Walk Test 6 Minute Walk Test: 6 Minute Walk Test PSN:6-Minute Walk Test Start: 11/26/24 12:04 Freq: Status: Active Protocol: [id number] Document 11/26/24 12:04 [facility] (Rec: 11/26/24 12:11 [facility] [id number]) 6 Minute Walk Test Date Performed 11/26/24 Time Performed 11:00 Height 5 ft 8.5 in Weight: 337 lb Weight in Pounds 337.[address]: Akanksha Bowser [employer] Assistive device None used: Pre-test Oxygen Delivery Room Air Method Pulse Ox (%) 94 Pulse Rate (60-100 63 beats/min) Dyspnea Jaqueline Scale ( 0 0-10) Exertion Jaqueline Scale 8 (6-20) 1st minute Oxygen Delivery Room Air Method Pulse Ox (%) 93 Pulse Rate (60-100 66 beats/min) Dyspnea Jaqueline Scale ( 0 0-10) Number of Rests 0 Taken 2nd minute Oxygen Delivery Room Air Method Pulse Ox (%) 92 Pulse Rate (60-100 74 beats/min) Dyspnea Jaqueline Scale ( 0 0-10) Number of Rests 0 Taken 3rd minute Oxygen Delivery Room Air Method Pulse Ox (%) 94 Pulse Rate (60-100 81 beats/min) Dyspnea Jaqueline Scale ( 0 0-10) Number of Rests 1 Taken 4th minute Oxygen Delivery Room Air Method Pulse Ox (%) 94 Pulse Rate (60-100 82 beats/min) Dyspnea Jaqueline Scale ( 1 0-10) Number of Rests 0 Taken 5th minute Oxygen Delivery Room Air Method Pulse Ox (%) 94 Pulse Rate (60-100 83 beats/min) Dyspnea Jaqueline Scale ( 2 0-10) Exertion Jaqueline Scale 12 (6-20) Number of Rests 1 Taken 6th minute Oxygen Delivery Room Air Method Pulse Ox (%) 94 Pulse Rate (60-100 85 beats/min) Dyspnea Jaqueline Scale ( 2 0-10) Exertion Jaqueline Scale 13 (6-20) Number of Rests 0 Taken Reported Symptoms Increased Work of Breathing Post-test Oxygen Delivery Room Air Method Pulse Ox (%) 96 Pulse Rate (60-100 65 beats/min) Dyspnea Jaqueline Scale ( 0 0-10) Exertion Jaqueline Scale 10 (6-20) Full Laps Walked 10 Partial Lap, Number 9 of Tiles Walked Total Distance 599 Walked (ft) 11/26/24 12:10 Cardiopulmonary Services by Bailey Esparza PATIENT ARRIVED FOR WALK TEST IN A W/C. HE USED HIS CANE DURING THE TEST. HE TOOK 2 SHORT REST BREAKS DURING TESTING D/T KNEE AND BACK PAIN. TESTING WAS PERFORMED WITH PATIENT ON ROOM AIR. HE WAS ABLE TO WALK 599FT. Initialized on 11/26/24 12:10 - END OF NOTE Interpretation Interpretation: The patient ambulated 599 feet over the course of 6 minutes beginning on room air with use of a cane. Pretesting oxygen saturation was noted to be 94% on room air. With ambulation, the edith oxygen saturation was 92%. Although there was evidence of impaired walk distance, there was no significant exertional oxygen desaturation. Recommendations Recommendations: There is no indication for the use of supplemental oxygen at this time.
== END | disposition home or self-care (01) ==
LOC: PSN 10:50
PROVIDERS: PCP Family Medicine; Referring Provider Nurse Practitioner Acute Care; Visit Provider Nurse Practitioner Acute Care
DX: J44.9 Chronic obstructive pulmonary disease, unspecified (principal)
CPT/HCPCS: 94618

== ENCOUNTER → 2024-12-09 | Outpatient (CLI) | payer MEDICARE, SELFPAY | END | disposition home or self-care (01) | LOC: PSN 07:32 | PROVIDERS: PCP Family Medicine; Referring Provider Nurse Practitioner Acute Care; Visit Provider Nurse Practitioner Acute Care | DX: J44.9 Chronic obstructive pulmonary disease, unspecified (principal) | CPT/HCPCS: 94060; 94726; 94729 ==